=== PATIENT | female | born 1970 | race African-American/Black ===

== ENCOUNTER 2017-01-18 03:02 | Inpatient (IN) | payer OTHER ==
[2017-01-18] MEDS ORDERED: Magnesium Sulfate 2 GM/100 ML BAG ONE (03:31)
[2017-01-18] MEDS ORDERED: Albuterol Sulfate 2.5 mg/0.5 ml Neb ONE (03:33)
[2017-01-18] MEDS ORDERED: Albuterol Sulfate 2.5 mg/3 ml Neb ONE (03:33)
[2017-01-18] MEDS ORDERED: cefTRIAXone\\ROCEPHIN 1 GM VIAL ONE (03:48)
[2017-01-18] MEDS ORDERED: Sodium Chloride 0.9% 100 ML ONE (03:48)
[2017-01-18 03:57] LABS: Band 2 % (5-11); Hematocrit 41.6 % (36.0-47.0); Mean Platelet Volume 7.2 fL (7.4-10.4); Neutrophil 38 % (42-75); Red Blood Cell (RBC) Count 4.37 mill/uL (4.20-5.40); White Blood Cell (WBC) Count 8.4 thou/uL (4.8-10.8)
[2017-01-18 03:58] LABS: ALT (SGPT) 11 U/L (8-55); AST (SGOT) 12 U/L (5-34); Alkaline Phosphatase 65 U/L (40-150); Anion Gap 9 mmol/L (10-20); BUN (Urea Nitrogen) 7 mg/dL (7.0-18.7); Bilirubin, Total 0.3 mg/dL (0.2-1.2); CK (CPK) 41 U/L (29-168); Calc. Creatinine Clearance 0 mL/min (70-130); Calcium 9.1 mg/dL (7.8-10.44); Carbon Dioxide 22 mmol/L (22-29); Chloride 112 mmol/L (98-107); Estimated GFR-MDRD 62; Globulin 2.3 g/dL (2.4-3.5); Lipase 10 U/L (8-78); Protein, Total 5.7 g/dL (6.0-8.3)
[2017-01-18 04:00] LABS: Troponin I Less than 0.010 ng/mL (< 0.028)
[2017-01-18 04:01] LABS: Lactic Acid - Sepsis 2.1 mmol/L (0.5-2.2)
[2017-01-18 05:29] LABS: Bilirubin Negative (Negative); Blood, Urine Negative (Negative); Glucose, Urine (Dipstick) Negative (Negative); Ketone, Urine Negative (Negative); Nitrite Negative (Negative); Protein, Urine (Dipstick) Negative (Neg-Trace); Urobilinogen 0.2 mg/dL (0.2-1.0)
[2017-01-18] MEDS ORDERED: Ondansetron HCl/PF 4 MG/2 ML Vial IVP PRN (05:40)
[2017-01-18] MEDS ORDERED: Ondansetron ODT 4 MG TAB SL PRN (05:40)
[2017-01-18] MEDS ORDERED: Albuterol Sulfate 2.5 mg/3 ml Neb NEB PRN (05:44)
[2017-01-18 05:53] VITALS: BMI 29.1
[2017-01-18] MEDS: methylPREDNISolone Sod Succ/PF 125 MG/2 ML VIAL IVP SCH ×2 (06:42→12:29)
[2017-01-18] MEDS: D5 1/2 NS w/20 mEq KCL 1,000 ML IV SCH ×2 (06:43→12:31)
[2017-01-18 06:59] LABS: Troponin I Less than 0.010 ng/mL (< 0.028)
--- NOTE | 2017-01-18 07:54 | RAD ---
PORTABLE AP CHEST: Date: 01/18/17 HISTORY: Asthma exacerbation. Fever, chills, and back pain. Dyspnea. COMPARISON: 08/03/16. FINDINGS: Cardiac silhouette and pulmonary vasculature are within normal limits. Lungs remain clear. There has been no interval change from the prior exam. IMPRESSION: No acute cardiopulmonary process. POS: [facility]
[2017-01-18] MEDS ORDERED: FLU VACC QS2017-18 36 mo. & older 0.5 ML SYRINGE IM ONE (09:00)
[2017-01-18 09:48] LABS: Troponin I Less than 0.010 ng/mL (< 0.028)
[2017-01-18] MEDS: Famotidine 20 MG TAB PO SCH ×2 (10:18→20:06)
[2017-01-18] MEDS: Azithromycin 250 MG TAB PO SCH (10:18)
[2017-01-18] MEDS: Enoxaparin Sodium 40 MG/0.4 ML SYRINGE SC SCH (10:19)
[2017-01-18 13:08] LABS: Amphetamine Not Detected (NotDetected); Methadone Not Detected (NotDetected); Methamphetamine Not Detected (NotDetected)
--- NOTE | 2017-01-18 13:33 | CON ---
DATE OF CONSULTATION: 01/18/2017 HISTORY OF PRESENT ILLNESS: Ms. Sotomayor is a 47-year-old female with a history of noncompliance with followup. She still smokes. She has COPD. She has a long history of street drug use. She presents with 3 days of nausea, vomiting and then shortness of breath that developed during this period. She subsequently has been admitted for further care. PAST MEDICAL HISTORY: 1. Remarkable for admissions for COPD and asthma in the past. 2. History of hypertension. 3. History of schizoaffective disorder. 4. History of lipid disorder. 5. History of a and hysterectomy. MEDICATIONS: Last admission, she was supposed to be on DuoNeb, Symbicort, Neurontin and lisinopril. FAMILY HISTORY: Negative for lung disease at an early age. PHYSICAL EXAMINATION: GENERAL: She is in no distress. She is afebrile. Heart rate in the 80s, respiratory rate is 18, o ximetry is 100% on 2 liters and blood pressure 116/59. HEENT: Pupils are equal. Sclerae are anicteric. NECK: Supple. LUNGS: Remarkable for coarse diffuse wheezes. HEART: Regular rhythm. S1 and S2 are normal. ABDOMEN: Soft and nontender. EXTREMITIES: Without asymmetry or edema. IMAGING DATA: Chest radiograph shows no infiltrates. LABORATORY DATA: Lab has been reviewed. She has a white count of 8.4, hemoglobin 13.8 and platelet s 233,000. Electrolytes were essentially normal. IMPRESSION: Chronic obstructive pulmonary disease/asthma exacerbation, probably triggered by a dilip l gastroenteritis. PLAN: Steroids, nebulizer treatments and empiric p.o. antibiotics. DVT prophylaxis, Pepcid, serial exams. A drug screen was ordered just to see if she is still using cocaine and other street drugs. She does admit she is continuing to smoke.
[2017-01-18] MEDS: Mometasone/Formoterol 120 PUFF INHALER INH SCH (18:28)
[2017-01-18] MEDS: Gabapentin 300 MG CAP PO SCH (20:06)
[2017-01-19] MEDS: Guaifenesin DM 100-10/5 ML UDCUP PO PRN ×2 (00:35→21:48)
--- NOTE | 2017-01-19 06:10 | HP ---
DATE OF ADMISSION: 01/18/2017 REASON FOR ADMISSION AND CHIEF COMPLAINT: Shortness of breath. HISTORY OF PRESENT ILLNESS: Ms. Padmaja Sotomayor is a 47-year-old -[place] female with past med ical history of COPD, asthma, who came with shortness of breath. The patient states she has run out of nebulizer medicine and also machine not working since last one week, started using inhaler, but she ran out of the inhaler as well and became very sick in the last 4 days. Shortness of breath got worse to the point she could not breathe and started wheezing quite a bit. The patient has not com e for followup and she left AMA on the last admission. The patient came to the hospital where she w as evaluated and found to be in acute on chronic respiratory failure due to a chronic obstructive pu lmonary disease, asthma exacerbation. The patient was given Solu-Medrol IVP bolus 125 mg as well as put on BiPAP, given DuoNeb treatments as well, and given Rocephin, levofloxacin, and magnesium sulf ate as well, received IV fluid bolus 1 liter. The patient was put on BiPAP and admitted to [facility] the neb treatments and Solu-Medrol. The patient improved and she was taken off BiPAP. The patien t was already seen by waiter/waitress bar, Dr. Treviño, and was transferred to the medical floor. PAST MEDICAL HISTORY: 1. Hypertension. 2. Chronic obstructive pulmonary disease versus bronchial asthma. 3. History of respiratory failure. 4. Schizoaffective disorder. 5. Polysubstance abuse. 6. Hyperlipidemia. 7. Noncompliant with medications and followups. PAST SURGICAL HISTORY: 1. Status post . 2. Status post hysterectomy. CURRENT MEDICATIONS: The patient is supposed to be taking DuoNebs q.i.d., Symbicort inhaler 160/4.5 two puffs b.i.d., Neurontin 300 mg t.i.d., lisinopril 10 mg daily. ALLERGIES: No known drug allergies. FAMILY HISTORY: Nothing of interest. SOCIAL HISTORY: The patient lives with the family. Smokes 1 pack a day and uses cocaine. REVIEW OF SYSTEMS: Cardiovascular: Has shortness of breath, no chest pain. Respiratory: Has coug h. No fever. Gastrointestinal: Has some nausea and vomiting as well, vomited a few times. Centra l Nervous System: No headache, no dizziness. PHYSICAL EXAMINATION: GENERAL: The patient is alert, awake, oriented x3. VITAL SIGNS: Temperature 98, pulse 89, respirations 20, blood pressure 100/60. HEENT: Head is normocephalic, atraumatic. Pupils equal and reactive to light. Nasopharynx is pale and dry. Hard and soft palate, no lesions. SKIN: Skin turgor decreased. NECK: Supple. No JVD. LUNGS: Breath sounds diminished bilaterally and diffuse wheezing present bilaterally. HEART: S1, S2 regular. ABDOMEN: Soft, no tenderness. Normal bowel sounds. CENTRAL NERVOUS SYSTEM: No focal deficits. LABORATORY AND X-RAY FINDINGS: CBC shows a WBC of 8.4, hemoglobin 13.8, hematocrit 41, platelets 23 3. Metabolic panel: Sodium 139, potassium 3.7, chloride 112, CO2 of 22, BUN 7, creatinine 1.1, glu cose 104. CK-MB 0.2. Troponin less than 0.010. Urinalysis is negative. Urine drug screen positiv e for cocaine, cannabinoids, and phencyclidine. Chest x-ray negative for infiltrates. EKG shows no rmal sinus rhythm, no acute ST-T wave changes seen. ASSESSMENT: 1. Chronic obstructive pulmonary disease versus bronchial asthma, acute exacerbation. 2. Acute on chronic respiratory failure secondary to chronic obstructive pulmonary disease versus b ronchial asthma, acute exacerbation. 3. Noncompliant. 4. Polysubstance abuse. 5. Hypertension. 6. Schizoaffective disorder. PLAN: 1. Vital signs q. 4 hours. 2. Activity: As tolerated. 3. Allergies: No known drug allergies. 4. Hep-lock. 5. Solu-Medrol 20 mg IVP q. 6 hours, DuoNeb q. 4 hours. 6. Continue home medication. 7. Regular diet.
[2017-01-19] MEDS: Mometasone/Formoterol 120 PUFF INHALER INH SCH ×2 (07:37→19:08)
[2017-01-19] MEDS: Famotidine 20 MG TAB PO SCH ×2 (08:32→21:47)
[2017-01-19] MEDS: Gabapentin 300 MG CAP PO SCH ×2 (08:32→21:47)
[2017-01-19] MEDS: guaiFENesin ER 600 MG TAB PO SCH ×2 (08:32→21:47)
[2017-01-19] MEDS: Enoxaparin Sodium 40 MG/0.4 ML SYRINGE SC SCH (08:33)
[2017-01-19] MEDS: Lisinopril 20 MG TAB PO SCH (08:33)
[2017-01-19] MEDS: Azithromycin 250 MG TAB PO SCH (08:36)
--- NOTE | 2017-01-19 15:26 | PRG ---
DATE OF SERVICE: 01/19/2017 SUBJECTIVE: Ms. Padmaja Sotomayor apparently walked down to the cafeteria to eat today. OBJECTIVE: VITAL SIGNS: She is afebrile. Heart rate is 100, respiratory rate is in the teens, oximetry is 99% on 2 liters and blood pressure is 119/67. LABORATORY DATA: Her drug screen was positive for PCP, cocaine and marijuana. IMPRESSION AND PLAN: 1. Asthma, chronic obstructive pulmonary disease exacerbation. 2. History of medical noncompliance. 3. Ongoing multiple street drug use. It is probably reasonable to switch her to p.o. steroids and consider discharge in the near future. We will sign off.
[2017-01-19] MEDS: predniSONE 20 MG TAB PO SCH (21:48)
[2017-01-20] MEDS: Mometasone/Formoterol 120 PUFF INHALER INH SCH (07:05)
[2017-01-20 08:23] VITALS: TEMP 97.8
[2017-01-20] MEDS: Enoxaparin Sodium 40 MG/0.4 ML SYRINGE SC SCH (08:23)
[2017-01-20] MEDS: predniSONE 20 MG TAB PO SCH (08:24)
[2017-01-20] MEDS: Lisinopril 20 MG TAB PO SCH (08:24)
[2017-01-20] MEDS: guaiFENesin ER 600 MG TAB PO SCH (08:24)
[2017-01-20] MEDS: Azithromycin 250 MG TAB PO SCH (08:25)
[2017-01-20] MEDS: Gabapentin 300 MG CAP PO SCH (08:25)
[2017-01-20] MEDS: Famotidine 20 MG TAB PO SCH (08:25)
[2017-01-20 08:26] VITALS: BP 113/65
== END 2017-01-20 19:04 | disposition home or self-care (01) | DRG 190 ==
LOC: ERS 03:02 → IMCU/EMU 03:36 → T4-B 13:13
PROVIDERS: ADMIT Internal Medicine; ATTEND Internal Medicine
PROC: 5A09357 Assistance with Respiratory Ventilation, Less than 24 Consecutive Hours, Continuous Positive Airway Pressure (ICD-10-PCS; principal; 2017-01-18)
DX: J44.1 Chronic obstructive pulmonary disease with (acute) exacerbation (principal); J96.20 Acute and chronic respiratory failure, unspecified whether with hypoxia or hypercapnia; J45.901 Unspecified asthma with (acute) exacerbation; I10 Essential (primary) hypertension; F25.9 Schizoaffective disorder, unspecified; Z91.19 Patient's noncompliance with other medical treatment and regimen; F19.10 Other psychoactive substance abuse, uncomplicated; E78.5 Hyperlipidemia, unspecified; F17.210 Nicotine dependence, cigarettes, uncomplicated
CPT/HCPCS: 36415; 71010; 80053; 80306; 81003; 82550; 82553; 83605; 83690; 83880; 84484; 85025; 87040; 87086; 93005; 94640; 94644; 94660; 94664; 96365; 96367; A4216; J0696; J1650; J1956; J2920; J3475; J7050; J7506; J7611; J7620

== ENCOUNTER 2017-04-10 08:17 | Inpatient (IN) | payer OTHER ==
[2017-04-10 08:32] LABS: #Basophils 0.1 thou/uL (0.0-0.2); #Eosinphils 1.3 thou/uL (0.0-0.7); #Lymphocytes 4.3 thou/uL (1.20-3.40); #Monocytes 1.1 thou/uL (0.11-0.59); #Neutrophils 5.4 thou/uL (1.40-6.50); %Basophils 0.8 % (0.0-1.0); %Eosinophils 10.3 % (0.0-10.0); %Lymphocytes 35.7 % (21.0-51.0); %Monocytes 8.8 % (0.0-10.0); %Neutrophils 44.4 % (42.0-75.0); Hemoglobin 14.7 g/dL (12.0-16.0); Mean Corpuscular HGB CONC 32.1 g/dL (32.0-36.0); Mean Corpuscular Hemoglobin 30.8 pg (27.0-31.0); Mean Corpuscular Volume 95.9 fl (81.0-99.0); Mean Platelet Volume 7.5 fL (7.4-10.4); Platelet Count 317 thou/uL (130-400); RBC Distribution Width 12.6 % (11.5-14.5); Red Blood Cell (RBC) Count 4.78 mill/uL (4.20-5.40); White Blood Cell (WBC) Count 12.1 thou/uL (4.8-10.8)
[2017-04-10 08:40] LABS: Bilirubin Negative (Negative); Blood, Urine Moderate (Negative); Clarity CLEAR (Clear); Glucose, Urine (Dipstick) Negative (Negative); Leukocyte Negative (Negative); Nitrite Negative (Negative); Protein, Urine (Dipstick) 30 mg/dL (Neg-Trace); Specific Gravity, Urine 1.022 (1.002-1.036); Urobilinogen 0.2 mg/dL (0.2-1.0)
[2017-04-10 08:42] LABS: Bacteria/HPF None Seen HPF (None Seen); Pathc Cast-AUWi Flag 0.81 (0-2.49); Squamous Epithelial 0-3 HPF (0-3); WBC/HPF 0-3 HPF (0-3)
[2017-04-10] MEDS ORDERED: methylPREDNISolone Sod Succ/PF 125 MG/2 ML VIAL ONE (08:43)
[2017-04-10] MEDS ORDERED: Water For Inject, Bacteriostat 30 ML ONE (08:43)
[2017-04-10 08:52] LABS: ALT (SGPT) 14 U/L (8-55); AST (SGOT) 15 U/L (5-34); Albumin 4.1 g/dL (3.5-5.0); Alkaline Phosphatase 92 U/L (40-150); Anion Gap 14 mmol/L (10-20); BUN (Urea Nitrogen) 6 mg/dL (7.0-18.7); Bilirubin, Total 0.2 mg/dL (0.2-1.2); Calc. Creatinine Clearance 0 mL/min (70-130); Calcium 10.7 mg/dL (7.8-10.44); Carbon Dioxide 24 mmol/L (22-29); Chloride 108 mmol/L (98-107); Estimated GFR-MDRD 61; Globulin 3.2 g/dL (2.4-3.5); Glucose 96 mg/dL (70-105); Potassium 3.6 mmol/L (3.5-5.1); Protein, Total 7.3 g/dL (6.0-8.3); Sodium 142 mmol/L (136-145)
[2017-04-10 08:54] LABS: Hyaline Casts/LPF 0-3 HYALINE CAST LPF (0-3 Hyaline)
[2017-04-10 08:57] LABS: CKMB 0.5 ng/mL (0-6.6); Troponin I Less than 0.010 ng/mL (< 0.028)
[2017-04-10 09:07] LABS: Amphetamine Not Detected (NotDetected); Barbiturates Screen Not Detected (NotDetected); Benzodiazepine Screen Not Detected (NotDetected); Cocaine Metabolite Screen Detected (NotDetected); Medtox Control Line Valid? VALID (VALID); Medtox Reader # READER 1; Methadone Not Detected (NotDetected); Methamphetamine Not Detected (NotDetected); Opiate Screen Not Detected (NotDetected); Oxycodone Screen Not Detected (NotDetected); Phencyclidine (PCP) Detected (NotDetected); THC/Cannabinoid Screen Detected (NotDetected); Tricyclic Screen Not Detected (NotDetected)
[2017-04-10] MEDS ORDERED: Lorazepam 2 MG/ML VIAL ONE ×2 (09:10→18:17)
[2017-04-10 09:20] LABS: Base Excess (BEa) -0.5 mEq/L (0 (+/-) 2.5); CO2 Tension 34.3 mmHg (35.0-45.0); Calcium, Ionized 1.3 mmol/L (1.12-1.30); Hematocrit-ABG 42.6 % (36.0-47.0); Hemoglobin (Hb) 13.9 g/dL (12.0-16.0); O2 Tension (PaO2) 261.2 mmHg (80.0-100.0); pH, Arterial 7.44 (7.35-7.45)
[2017-04-10 09:21] LABS: ALV-art Gradient 408.925 (0-20); Analyzer IN Cardio ER; Puncture Site RRA
--- NOTE | 2017-04-10 09:40 | RAD ---
FRONTAL VIEW CHEST: INDICATIONS: Emergency exam for shortness of breath. COMPARISON: 01/18/2017 FINDINGS: The patient is intubated with an endotracheal tube at the level of the thoracic inlet. There is no l obar consolidation, effusion, or discrete pneumothorax. The cardiac silhouette is accentuated by the portable technique. IMPRESSION: 1. Endotracheal tube with the tip at the thoracic inlet level. 2. No lobar consolidation. POS: [facility]
[2017-04-10] MEDS ORDERED: Midazolam HCl 5 mg/ml Vial ONE ×3 (09:46→12:09)
--- NOTE | 2017-04-10 10:13 | CT ---
CT HEAD NONCONTRAST: INDICATIONS: Altered mental status with respiratory distress. COMPARISON: 08/03/2016 FINDINGS: The ventricular system is normal in size. The septum pellucidum and third ventricle are midline. Th ere is no intracranial hemorrhage, mass effect, or midline shift. Scattered paranasal sinuses mucosa l thickening is present. IMPRESSION: No acute intracranial abnormalities visualized. POS: [facility]
[2017-04-10] MEDS ORDERED: Propofol 1,000 MG/100 ML VIAL IV ONE (15:13)
[2017-04-10 15:21] VITALS: BMI 29.0
[2017-04-10] MEDS: Dextrose 5 %-0.45 % NaCl 1,000 ML IV SCH (17:24)
[2017-04-10] MEDS ORDERED: Lorazepam 2 MG/ML VIAL SLOW IVP PRN (18:23)
[2017-04-10] MEDS ORDERED: Propofol 1,000 MG/100 ML VIAL IV PRN (18:23)
[2017-04-10] MEDS ORDERED: Morphine 2 MG/ML SYRINGE SLOW IVP PRN (18:23)
[2017-04-10] MEDS ORDERED: DISCONTINUE PREVIOUS NARCOTIC PAIN MEDICATIONS AND BENZODIAZEPINES FS SCH (18:23)
[2017-04-10] MEDS ORDERED: fentaNYL Citrate/PF 2,000 MCG in Sodium Chloride 0.9% 60 ML IV SCH (18:30)
[2017-04-10] MEDS ORDERED: Mometasone/Formoterol 120 PUFF INHALER INH SCH (18:30)
[2017-04-10] MEDS ORDERED: Lacri-Lube Opth Oint 3.5 GM TUBE EA EYE PRN (19:04)
[2017-04-10] MEDS ORDERED: Labetalol HCl 100 MG/20 ML VIAL SLOW IVP PRN (19:08)
[2017-04-10] MEDS ORDERED: FLU VACC QS2017-18 36 mo. & older 0.5 ML SYRINGE IM ONE (21:00)
--- NOTE | 2017-04-11 00:09 | CON ---
DATE OF CONSULTATION: 04/10/2017 SERVICE: Pulmonary Medicine. HISTORY OF PRESENT ILLNESS: The patient is a 47-year-old -Citizen Of [place] female with past medical h istory significant for polysubstance drug abuse. Apparently, she was in her usual state of health wh en she started having acute onset of difficulty breathing. She came into a fire station acutely dysp neic. She was subsequently brought to the emergency department and intubated. Apparently, it was a traumatic intubation. Some injury happened to the lip, tongue, and possibly the airway. Either way, the airway was established. She cannot provide me with any additional elements of the history. It is not clear when she was last in her usual state of health to me. PAST MEDICAL HISTORY: 1. Hypertension. 2. Chronic obstructive pulmonary disease. 3. Respiratory failure. 4. Schizoaffective disorder. 5. Polysubstance drug abuse. 6. Dyslipidemia. 7. Noncompliance with medications. PAST SURGICAL HISTORY: 1. section. 2. Hysterectomy. ALLERGIES: No known drug allergies. MEDICATIONS: List of her inpatient medications was reviewed. Multiple updates were made. FAMILY HISTORY: Noncontributory. SOCIAL HISTORY: The patient uses multiple different illicit substances. She smokes a pack a day and uses cocaine and apparently, PCP. She lives with some family members. REVIEW OF SYSTEMS: This cannot be obtained as the patient is currently intubated and sedated. PHYSICAL EXAMINATION: VITAL SIGNS: Afebrile. Pulse 73, blood pressure 161/101, respirations 22, saturation 98% on 21% FIO 2 and a PEEP of 5. GENERAL: The patient is intubated and sedated. HEENT: Normocephalic. There is trauma to the lip and tongue. Sclerae are white, conjunctivae are p ink. Oral and nasal mucosa is moist without lesions. She does not have a cuff leak on the endotrach eal tube. LUNGS: Excellent air entry. There is no prolonged expiratory phase. I do not appreciate any wheezi ng or rhonchi. There is no prolonged expiratory phase on the ventilator waveform either. HEART: Normal rate, regular. ABDOMEN: Soft, nontender, nondistended, bowel sounds positive. MUSCULOSKELETAL: No cyanosis or clubbing. There is trace pitting in the bilateral lower extremities . NEUROLOGIC: Grossly nonfocal. LABORATORY DATA: WBC 12.1, hemoglobin 14.7, platelets 317,000. INR is 0.9. PH 7.44, pCO2 of 34, pO 2 of 261 on 100% FIO2. Creatinine 1.15, which is slightly above baseline. Basic metabolic profile a nd liver function studies are unremarkable. Cardiac enzymes are negative x3. Lactate 2.1 and down t rending. Urinalysis is unremarkable. Drug screen is positive for PCP, cocaine, and cannabinoids. I nfluenza screen is negative. Urine culture and blood cultures were all negative to date. IMAGIN. CT of the brain demonstrates no acute intracranial abnormality. 2. Chest x-ray demonstrates endotracheal tube is in good position. There is no obvious acute inflam matory process that is occurring here. ASSESSMENT: 1. Acute hypoxic respiratory failure, resolved. 2. Hypertensive emergency, resolved. 3. Metabolic encephalopathy. 4. Polysubstance drug abuse. PLAN: We will provide the patient with little sedation overnight. I am going to give her some stero ids because there is no cuff leak. In the morning, if there is a cuff leak, she can most likely be c onsidered for extubation. Ventilator adjustments have already been made to minimize support that we are giving her. She truthfully requires very little oxygen. Precedex will be provided if she become s a little bit excitable. We will also provide her with p.r.n. blood pressure medications. Supporti ve care will be continued. CRITICAL CARE TIME: 30 minutes.
--- NOTE | 2017-04-11 00:21 | HP ---
DATE OF ADMISSION: 04/10/2017 CHIEF COMPLAINT: Shortness of breath. HISTORY OF PRESENT ILLNESS: Ms. Sotomayor is a 47-year-old -[place] female with past medical his tory of COPD versus asthma, recent respiratory failure and polysubstance abuse, has been noncompliant with medications, was brought in with respiratory distress. Patient walked up to EMS station [facility] saying that she could not breathe. EMS gave her four DuoNeb treatments, and Solu-Medrol 125 bolus and nitro, put her on CPAP and brought her to the hospital. Patient was found to be in acute respira tory failure. In the ER, the patient was intubated and put on ventilator. Patient was also found to have positive for polysubstance including phencyclidine and cannabinoids and cocaine like before. P shaylee has been noncompliant with medications. Since last discharge, patient was not seen in the off ice, so it is not clear whether she is taking her medications. No history could be obtained because the patient is intubated and sedated. PAST MEDICAL HISTORY: 1. Schizoaffective disorder. 2. Hypertension. 3. Chronic obstructive pulmonary disease. 4. Polysubstance abuse. 5. Noncompliant with medication. 6. Hyperlipidemia. 7. History of respiratory failure. PAST SURGICAL HISTORY: 1. Status post . 2. Status post hysterectomy. CURRENT MEDICATIONS: Patient is supposed to be on DuoNebs q.i.d., Symbicort inhaler 160/4.5 two puff s b.i.d., Neurontin 300 mg t.i.d., lisinopril 10 mg daily. ALLERGIES: No known drug allergies. FAMILY HISTORY: Nothing of interest. SOCIAL HISTORY: Patient lives with family. There is a history of drug abuse including cocaine, teo abinoids, and phencyclidine. Also, smokes one pack a day. REVIEW OF SYSTEMS: Unable to obtain because the patient is intubated and sedated. PHYSICAL EXAMINATION: GENERAL: Patient is on bedside, on ventilator. LUNGS: Rhonchi present bilaterally. HEART: S1, S2 regular. ABDOMEN: Soft, no distention, no tenderness. Normal bowel sounds. RECTAL: Deferred. CENTRAL NERVOUS SYSTEM: No focal deficit. LABORATORY AND X-RAY FINDINGS: CBC shows WBC of 12,000, hemoglobin of 14, hematocrit 45, platelets 3 17. Metabolic panel: Sodium 142, potassium 3.6, chloride 100, CO2 is 24, urea nitrogen 16, creatini ne 1, glucose 96. ABG showed pH 7.4, pCO2 of 34, pO2 of 261, saturation 99%. Urinalysis negative. Urine toxicology was positive for phencyclidine, cocaine, and cannabinoids. Chest x-ray negative. C T of the brain, no acute intracranial abnormalities noted. EKG shows normal sinus rhythm, no acute S T-T wave changes seen. ASSESSMENT: 1. Acute on chronic respiratory failure secondary to chronic obstructive pulmonary disease versus br onchial asthma exacerbation. 2. Metabolic encephalopathy. 3. Polysubstance abuse. 4. Schizoaffective disorder. 5. Noncompliant with medications. 6. Hypertension. PLAN: 1. Vital signs q.4 hours. 2. Activity: As tolerated. 3. IV fluids D5 half at 80 mL per hour. 4. Ventilator support. 5. DuoNebs 1 unit q.3 hours. 6. Solu-Medrol 40 mg IVP q.6 hours. 7. Levaquin 750 IV piggyback daily. 8. Lovenox 40 mg subcu daily. 9. Protonix 40 mg p.o. q.24 hours IV piggyback. 10. Pulmonary consult. Her condition is critical. Prognosis is guarded.
[2017-04-11] MEDS ORDERED: Furosemide 40 MG/4 ML VIAL ONE (08:17)
[2017-04-11] MEDS ORDERED: hydrALAZINE 20 MG/ML VIAL SLOW IVP SCH (08:45)
[2017-04-11] MEDS ORDERED: Furosemide 20 MG/2 ML VIAL SLOW IVP SCH (08:45)
[2017-04-11] MEDS ORDERED: Enoxaparin Sodium 40 MG/0.4 ML SYRINGE SC SCH (09:00)
[2017-04-11] MEDS: Dextrose 5 %-0.45 % NaCl 1,000 ML IV SCH ×2 (09:25→20:52)
[2017-04-11] MEDS ORDERED: Lisinopril 20 MG TAB PO SCH (20:00)
[2017-04-11] MEDS: guaiFENesin ER 600 MG TAB PO SCH (20:33)
--- NOTE | 2017-04-11 23:54 | CON ---
DATE OF CONSULTATION: 04/11/2017 SUBJECTIVE: Ms. Sotomayor is a 47-year-old female with obstructive lung disease and asthma who presented with shortness of breath. She has a long history of noncompliance. Apparently, she was intubated in the emergency room. She extubated herself this morning. She is not wheezing at this time, she was seen by my associate yesterday. Past medical history, family history, social history have all been reviewed. She slammed the door on the nurses last night, jammed door, and they had to access through the bathroom, but she denie s doing this. She is not wheezing at this time. PHYSICAL EXAMINATION: VITAL SIGNS: Stable. She is afebrile, blood pressure 107/69, heart rate 65, respiratory rate 16. IMPRESSION AND RECOMMENDATIONS: Asthma/chronic obstructive pulmonary disease with ongoing symptoms that are aggravated by her ongoing inhaled drug use as well as ongoing smoking. I explained to her that I do not think she will live t hrough 2018 if she continues on this path. She is stable to move out of the Critical Care Unit. We will sign off.
[2017-04-12] MEDS ORDERED: Sodium Chloride 0.9% 10 ML ONE ×2 (05:50)
[2017-04-12] MEDS ORDERED: Mometasone/Formoterol 120 PUFF INHALER INH SCH (06:30)
[2017-04-12] MEDS: guaiFENesin ER 600 MG TAB PO SCH (08:47)
[2017-04-12] MEDS ORDERED: Lisinopril 20 MG TAB PO SCH (09:00)
[2017-04-12 16:58] VITALS: BP 134/76; TEMP 97.8
--- NOTE | 2017-04-12 18:02 | PRG ---
DATE OF SERVICE: 04/12/2017 SUBJECTIVE: Padmaja Sotomayor states she is back to her baseline and she wants to go home. She is in no distress. She is afebrile. Blood pressure 134/79, heart rate 85, respiratory rate 20, oximetry is 9 7% on room air. She has written a prescription for DuoNeb. Also written a prescription of 20 mg pre dnisone tablets to take 2 for 4 days, 1 for 8 days, then half tablet for 8 days, hopefully she will f ill this. Again I emphasized the importance of staying away from PCP, cocaine, marijuana, and cigare ttes. I have explained to her that this is why she is in the hospital with increasing frequency and that she may not make it through the year if she continues on this path. I have explained to her steff t the tube was life support. She would have without that and we will sign off.
[2017-04-12] MEDS: Dextrose 5 %-0.45 % NaCl 1,000 ML IV SCH (18:08)
[2017-04-13] MEDS ORDERED: predniSONE 20 MG TAB PO SCH (09:00)
--- NOTE | 2017-04-14 06:58 | DIS ---
DATE OF ADMISSION: 04/10/2017 DATE OF DISCHARGE: 04/12/2017 ADMITTING DIAGNOSES: 1. Acute on chronic respiratory failure secondary to chronic obstructive pulmonary disease versus br onchial asthma exacerbation. 2. Metabolic encephalopathy, polysubstance abuse. 3. Noncompliant with medications. 4. Schizoaffective disorder. 5. Hypertension. FINAL DIAGNOSES: 1. Acute on chronic respiratory failure secondary to chronic obstructive pulmonary disease versus br onchial asthma exacerbation, improved. 2. Metabolic encephalopathy, improved. 3. Polysubstance abuse. 4. Schizoaffective disorder 5. Hypertension. BRIEF HOSPITAL COURSE: Ms. Sotomayor is a 47-year-old -[place] female admitted because of respir atory failure. Patient has had not been taking medications, did not come for refills and so she is o ut of medications and also she is abusing lot of substance including cocaine, phencyclidine, and teo abinoids and smokes 1 pack a day and not taking her medications. She ended up again in the respirato ry failure. The patient was admitted previously for the similar issues, similar problems. Though, jose shaylee was told not to abuse any substances and also take her medications, the patient continued to d o the same, so she was intubated and put on ventilator and admitted to CCU for respiratory failure. Following day, patient was feeling better, but before she could be extubated, she extubated herself. The patient continued neb treatments and Solu-Medrol. She was moved out of ICU and the following da y, patient was much better, she did not have anymore wheezing. In view of improvement, the patient w as discharged. At the time of discharge, she was stable. Vital signs were stable. Lungs clear. He art sounds regular. DISCHARGE MEDICATIONS: Include DuoNebs q.i.d., Mucinex 600 b.i.d. for 10 days, lisinopril 20 mg leandro y, prednisone in tapering doses, Symbicort 160/4.5 two puffs b.i.d. DISCHARGE INSTRUCTIONS: The patient is strongly advised to avoid any kind of substance abuse and als o to be compliant with her medications.
== END 2017-04-12 18:55 | disposition home or self-care (01) | DRG 208 ==
LOC: ERS 08:17 → ERHOLD 10:05 → CCU 15:04 → ONC 04-11 18:34
PROVIDERS: ADMIT Internal Medicine; ATTEND Internal Medicine
PROC: 5A1935Z Respiratory Ventilation, Less than 24 Consecutive Hours (ICD-10-PCS; principal; 2017-04-10)
PROC: 0BH17EZ Insertion of Endotracheal Airway into Trachea, Via Natural or Artificial Opening (ICD-10-PCS; 2017-04-10)
DX: J96.21 Acute and chronic respiratory failure with hypoxia (principal); G92 Toxic encephalopathy; J44.1 Chronic obstructive pulmonary disease with (acute) exacerbation; I16.1 Hypertensive emergency; F25.9 Schizoaffective disorder, unspecified; F14.10 Cocaine abuse, uncomplicated; F16.10 Hallucinogen abuse, uncomplicated; Z91.14 Patient's other noncompliance with medication regimen; I10 Essential (primary) hypertension; F17.210 Nicotine dependence, cigarettes, uncomplicated; E78.5 Hyperlipidemia, unspecified
CPT/HCPCS: 31500; 36415; 51702; 70450; 71045; 80053; 80306; 81003; 81015; 82553; 82805; 83605; 84484; 85025; 87040; 93005; 94003; 94640; 94760; 96361; 96365; 96366; 96374; 96375; 96376; A4216; J1940; J1956; J2060; J2250; J2704; J2920; J2930; J7050; J7620

== ENCOUNTER 2017-06-23 13:57 | Inpatient (IN) | payer OTHER ==
[2017-06-23] MEDS ORDERED: Albuterol Sulfate 2.5 mg/3 ml Neb ONE (14:29)
[2017-06-23 15:00] LABS: Hemoglobin 13.6 g/dL (12.0-16.0); Mean Corpuscular HGB CONC 32.5 g/dL (32.0-36.0); Mean Corpuscular Hemoglobin 30.7 pg (27.0-31.0); Mean Corpuscular Volume 94.4 fl (81.0-99.0); Mean Platelet Volume 7.1 fL (7.4-10.4); Platelet Count 277 thou/uL (130-400); RBC Distribution Width 13.9 % (11.5-14.5); Red Blood Cell (RBC) Count 4.44 mill/uL (4.20-5.40); White Blood Cell (WBC) Count 20.1 thou/uL (4.8-10.8)
[2017-06-23 15:03] LABS: Base Excess (BEa) -0.4 mEq/L (0 (+/-) 2.5); CO2 Tension 33.8 mmHg (35.0-45.0); O2 Tension (PaO2) 66.7 mmHg (80.0-100.0); pH, Arterial 7.45 (7.35-7.45)
[2017-06-23 15:04] LABS: Calcium, Ionized 1.5 mmol/L (1.12-1.30); Hemoglobin (Hb) 12.8 g/dL (12.0-16.0)
[2017-06-23 15:05] LABS: Analyzer IN Cardio ER; Puncture Site LRA
--- NOTE | 2017-06-23 15:05 | RAD ---
CHEST 1 VIEW: Date: 06/23/17 HISTORY: 47-year-old female with history of dyspnea and shortness of breath. COMPARISON: 04/10/17. FINDINGS: Heart size is normal. There is a small focus of questionable minimal increased density in the right l ower lobe, possibly a small focus of infiltrate. Conceivably, this could represent a pulmonary nodule , although it did not appear to be present on 04/10/17 and I doubt that it has developed in the inter colin. IMPRESSION: Small opacity overlying the right hemidiaphragm. I favor this to be small area of pneumonia, although a small nodule cannot be excluded. Correlate clinically and recommend short-term follow-up to includ e upright PA and lateral chest. POS: [facility]
[2017-06-23] MEDS ORDERED: Dexamethasone 4 mg/ml Vial ONE (15:06)
[2017-06-23] MEDS ORDERED: Magnesium Sulfate 2 GM/100 ML BAG ONE (15:06)
[2017-06-23 15:16] LABS: Band 9 % (5-11); Lymphocytes 13 % (21-51); MDiff Complete? YES; Monocytes 9 % (0-10); Neutrophil 67 % (42-75); PLT Morphology Comment Appears Adequate; RBC Morphology Normal; Reactive Lymphocytes 2 % (0-10)
[2017-06-23 15:18] LABS: ALT (SGPT) 13 U/L (8-55); AST (SGOT) 12 U/L (5-34); Albumin 3.8 g/dL (3.5-5.0); Alkaline Phosphatase 78 U/L (40-150); Anion Gap 15 mmol/L (10-20); BUN (Urea Nitrogen) 9 mg/dL (7.0-18.7); Bilirubin, Total 0.2 mg/dL (0.2-1.2); CK (CPK) 107 U/L (29-168); Calc. Creatinine Clearance 0 mL/min (70-130); Calcium 10.3 mg/dL (7.8-10.44); Carbon Dioxide 19 mmol/L (22-29); Chloride 107 mmol/L (98-107); Estimated GFR-MDRD 77; Globulin 2.7 g/dL (2.4-3.5); Glucose 89 mg/dL (70-105); Lipase Less than 4 U/L (8-78); Potassium 3.8 mmol/L (3.5-5.1); Protein, Total 6.5 g/dL (6.0-8.3); Sodium 137 mmol/L (136-145)
[2017-06-23 15:22] LABS: Troponin I Less than 0.010 ng/mL (< 0.028)
[2017-06-23 16:23] LABS: Bilirubin Negative (Negative); Blood, Urine Negative (Negative); Clarity CLEAR (Clear); Glucose, Urine (Dipstick) Negative (Negative); Leukocyte Negative (Negative); Nitrite Negative (Negative); Protein, Urine (Dipstick) Negative (Neg-Trace); Specific Gravity, Urine 1.006 (1.002-1.036); Urobilinogen 0.2 mg/dL (0.2-1.0); pH, Urine 6.5 (5.0-9.0)
[2017-06-23 21:36] VITALS: BMI 28.4
[2017-06-23] MEDS ORDERED: Ondansetron ODT 4 MG TAB SL PRN (21:53)
[2017-06-23] MEDS ORDERED: Sodium Chloride 0.9% 1,000 ML IV SCH (21:53)
[2017-06-23] MEDS ORDERED: Ondansetron HCl/PF 4 MG/2 ML Vial IVP PRN (21:53)
[2017-06-23] MEDS: Sodium Chloride 0.9% 1,000 ML IV SCH (23:45)
[2017-06-24] MEDS: Mometasone/Formoterol 120 PUFF INHALER INH SCH ×2 (06:38→18:27)
[2017-06-24] MEDS: Lisinopril 20 MG TAB PO SCH (08:14)
[2017-06-24] MEDS: Gabapentin 300 MG CAP PO SCH ×2 (08:14→20:52)
[2017-06-24] MEDS: Sodium Chloride 0.9% 1,000 ML IV SCH ×3 (08:18→23:07)
[2017-06-24] MEDS ORDERED: FLU VACC QS2017-18 36 mo. & older 0.5 ML SYRINGE IM ONE (09:00)
[2017-06-24] MEDS ORDERED: Guaifenesin DM 100-10/5 ML UDCUP PO PRN (14:45)
--- NOTE | 2017-06-24 16:20 | RAD ---
PA AND LATERAL OF THE CHEST: 06/24/17 INDICATION: History of asthma exacerbation. FINDINGS: No focal consolidation, pleural effusion, or pneumothorax is evident. Cardiomediastinal is within no rmal limits. No acute osseous abnormality is evident. IMPRESSION: No acute cardiopulmonary abnormality. POS: [facility]
[2017-06-24 18:51] LABS: Medtox Reader # READER 4; THC/Cannabinoid Screen Detected (NotDetected)
[2017-06-24 18:52] LABS: Amphetamine Not Detected (NotDetected); Barbiturates Screen Not Detected (NotDetected); Benzodiazepine Screen Not Detected (NotDetected); Cocaine Metabolite Screen Detected (NotDetected); Medtox Control Line Valid? VALID (VALID); Methadone Not Detected (NotDetected); Methamphetamine Not Detected (NotDetected); Opiate Screen Not Detected (NotDetected); Oxycodone Screen Not Detected (NotDetected); Phencyclidine (PCP) Detected (NotDetected); Tricyclic Screen Not Detected (NotDetected)
--- NOTE | 2017-06-25 00:20 | HP ---
DATE OF ADMISSION: 06/23/2017 CHIEF COMPLAINT: Shortness of breath and cough. HISTORY OF PRESENT ILLNESS: Ms. Sotomayor is a 47-year-old with past medical history of asthma with COPD, started having wheezing. She uses nebulizer treatments, used 3 times already, and also started on prednisone, but the symptoms were getting worse. The patient was initially seen in the office and then referred to the ER. In the ER, the patient was evaluated and found to be in acute on chronic respiratory failure due to chronic obstructive pulmonary disease versus asthma exacerbation. The patient was given Decadron, DuoNeb, IV fluids, and admitted for further evaluation and management. The patient was also found to have small area of pneumonia on the right side and was given one dose of Levaquin. PAST MEDICAL HISTORY: 1. Chronic obstructive pulmonary disease versus asthma. 2. Hypertension. 3. Hyperlipidemia. 4. Bipolar disorder. 5. History of drug abuse. 6. History of TIA. PAST SURGICAL HISTORY: Status post , status post hysterectomy. CURRENT MEDICATIONS: The patient is on DuoNeb q.i.d., Symbicort 160/4.5 two puffs b.i.d., Neurontin 300 mg b.i.d., lisinopril 10 mg daily, prednisone 50 mg daily. ALLERGIES: No known drug allergies. FAMILY HISTORY: Nothing of interest. SOCIAL HISTORY: The patient lives with her family. History of drug abuse. Smokes one pack a day, uses cocaine, cannabinoids and phencyclidine. REVIEW OF SYSTEMS: Cardiovascular: No chest pain. Has shortness of breath. Respiratory: Has cough, no fever. Gastrointestinal: No nausea, no abdominal pain. Genitourinary: No dysuria. Central nervous system: No headache, no dizziness. PHYSICAL EXAMINATION: GENERAL: The patient is alert, awake, oriented x3. VITAL SIGNS: Temperature 98, pulse 77, respiration 22, blood pressure 120/60. HEENT: Head is normocephalic, atraumatic. Pupils are equal, round and reactive to light. Nasopharynx is pink, moist. NECK: Supple. No JVD. LUNGS: Bilateral air entry +, wheezing present bilaterally. No rales. CARDIAC: S1, S2 regular. ABDOMEN: Soft, no tenderness, no distention. Normal bowel sounds present. RECTAL: Deferred. CENTRAL NERVOUS SYSTEM: No focal deficits. LABORATORY DATA AND X-RAY FINDINGS: CBC shows WBC 20,000, hemoglobin 13, hematocrit 41, platelets 277. Metabolic panel: Sodium 137, potassium 3.8, chloride 107, CO2 19, BUN 9, creatinine 0.9, glucose 89. ABG showed pH 7.45, pCO2 of 33, pO2 66, saturation 96%. Urinalysis negative. Chest x-ray reported as small opacity overlying the right hemidiaphragm, possible pneumonia. EKG shows normal sinus rhythm, no acute ST-T wave changes seen. ASSESSMENT: 1. Acute on chronic respiratory failure due to chronic obstructive pulmonary disease versus bronchial asthma exacerbation. 2. Pneumonia, right lower lobe. 3. Hypertension. 4. History of drug abuse. 5. Bipolar disorder. PLAN: 1. Vital signs q.4 hours. 2. Activity: As tolerated. 3. Allergies: No known drug allergies. 4. IV fluids with normal saline at 100 mL per hour. 5. Solu-Medrol 40 IVP q.6 hours, DuoNeb 1 unit q.6 hours. 6. Continue home medications with Levaquin 750 mg IV piggyback daily. We will repeat the chest x-ray. [facility]
[2017-06-25] MEDS ORDERED: Fluticasone Propionate Nasal Spray 16 gm Bottle NASAL SCH (00:45)
[2017-06-25] MEDS: Fluticasone Propionate Nasal Spray 16 gm Bottle NASAL PRN ×2 (01:10→09:39)
[2017-06-25] MEDS: Mometasone/Formoterol 120 PUFF INHALER INH SCH (07:02)
[2017-06-25] MEDS: Lisinopril 20 MG TAB PO SCH (09:37)
[2017-06-25] MEDS: Gabapentin 300 MG CAP PO SCH (09:37)
[2017-06-25 17:34] VITALS: BP 147/96; TEMP 97.9
[2017-06-26] MEDS ORDERED: predniSONE 50 MG TAB PO SCH (08:00)
--- NOTE | 2017-06-27 13:46 | DIS ---
DATE OF ADMISSION: 06/23/2017 DATE OF DISCHARGE: 06/25/2017 ADMITTING DIAGNOSES: 1. Acute on chronic respiratory failure due to bronchial asthma versus chronic obstructive pulmonary disease exacerbation. 2. Pneumonia, right lower lobe. 3. Hypertension. 4. History of drug abuse with bipolar disorder. FINAL DIAGNOSES: 1. Acute on chronic respiratory failure due to chronic obstructive pulmonary disease exacerbation, i mproved. 2. No evidence of pneumonia. 3. Hypertension. 4. History of polysubstance abuse with bipolar disorder. BRIEF SUMMARY OF HOSPITAL COURSE: Ms. Sotomayor is a 47-year-old female admitted [facility] of severe respiratory failure. The patient was in wheezing and hypoxia. She was given neb treatme nt with Solu-Medrol after which she markedly improved. She was still continued on steroids, nebulize r treatments and admitted for further evaluation. Initially, she was thought to have pneumonia. She was started on Levaquin, but repeat chest x-ray revealed no evidence of pneumonia. In the following 2 days, her shortness of breath markedly improved. Her chest wheezing resolved. Her cough is much improved. No fever. In view of improvement, she was discharged home. At the time of discharge, she was stable. Her vital signs were stable. Lungs clear. Heart sounds regular. Abdomen is soft and nontender. Bowel sounds present. DISCHARGE MEDICATIONS: Lisinopril 20 mg daily, gabapentin 600 b.i.d., Symbicort 160/4.5 two puffs b. i.d., DuoNeb q.i.d., prednisone 50 mg daily for 5 days. FOLLOWUP: The patient will come for followup in 2 weeks.
--- NOTE | 2017-08-05 14:57 | EKG ---
Test Reason : Blood Pressure : / mmHG Vent. Rate : 098 BPM Atrial Rate : 098 BPM P-R Int : 116 ms QRS Dur : 074 ms QT Int : 338 ms P-R-T Axes : 038 055 069 degrees QTc Int : 431 ms Normal sinus rhythm Normal ECG Confirmed by CARLOS MONIQUE, WILBERTO ([id number]), senior technical editor HANS ENCISO ([id number]) on 08/05/2017 2:57:16 PM Referred By: Confirmed By:WILBERTO GONZALEZ MD
== END 2017-06-25 17:51 | disposition home or self-care (01) | DRG 193 ==
LOC: ERS 13:57 → T4-B 18:51
PROVIDERS: ADMIT Internal Medicine; ATTEND Internal Medicine
DX: J18.9 Pneumonia, unspecified organism (principal); J96.21 Acute and chronic respiratory failure with hypoxia; J44.1 Chronic obstructive pulmonary disease with (acute) exacerbation; I10 Essential (primary) hypertension; E78.5 Hyperlipidemia, unspecified; F31.9 Bipolar disorder, unspecified; Z86.73 Personal history of transient ischemic attack (TIA), and cerebral infarction without residual deficits; F17.210 Nicotine dependence, cigarettes, uncomplicated; F14.10 Cocaine abuse, uncomplicated; F12.10 Cannabis abuse, uncomplicated
CPT/HCPCS: 36415; 71045; 71046; 80053; 80306; 81003; 82553; 82805; 83605; 83690; 83880; 84484; 85025; 87040; 87804; 93005; 94640; 94644; 96361; 96365; 96375; A4216; J1100; J1956; J2920; J3475; J7611; J7620

== ENCOUNTER 2017-12-11 07:08 | Inpatient (IN) | payer OTHER ==
[2017-12-11] MEDS ORDERED: methylPREDNISolone Sod Succ/PF 125 MG/2 ML VIAL ONE ×2 (07:40→13:12)
[2017-12-11] MEDS ORDERED: Magnesium Sulfate 2 GM/100 ML BAG ONE (07:40)
[2017-12-11] MEDS ORDERED: Ondansetron HCl/PF 4 MG/2 ML Vial ONE (07:40)
[2017-12-11 07:47] LABS: #Basophils 0.1 thou/uL (0.0-0.2); #Eosinphils 0.9 thou/uL (0.0-0.7); #Monocytes 1.1 thou/uL (0.11-0.59); #Neutrophils 5.8 thou/uL (1.40-6.50); %Basophils 0.9 % (0.0-1.0); %Eosinophils 7.8 % (0.0-10.0); %Lymphocytes 33.7 % (21.0-51.0); %Monocytes 8.9 % (0.0-10.0); %Neutrophils 48.8 % (42.0-75.0); Mean Corpuscular HGB CONC 34.1 g/dL (32.0-36.0); Mean Corpuscular Hemoglobin 31.5 pg (27.0-31.0); Mean Corpuscular Volume 92.4 fL (78.0-98.0); Mean Platelet Volume 7.6 fL (7.4-10.4); Platelet Count 276 thou/uL (130-400); RBC Distribution Width 12.8 % (11.5-14.5); Red Blood Cell (RBC) Count 4.75 mill/uL (4.20-5.40)
--- NOTE | 2017-12-11 08:01 | RAD ---
UPRIGHT PORTABLE CHEST 1 VIEW: HISTORY: A 47-year-old female with a history of difficulty breathing for 2 days. COMPARISON: 06/24/17. FINDINGS: Monitor leads overlie the chest. The lungs are clear. No pneumonia, edema, or pleural effusion. IMPRESSION: No acute intrathoracic disease. Stable from prior study. POS: [facility]
[2017-12-11 08:07] LABS: ALT (SGPT) 11 U/L (8-55); AST (SGOT) 13 U/L (5-34); Albumin 4.5 g/dL (3.5-5.0); Alkaline Phosphatase 94 U/L (40-150); Anion Gap 13 mmol/L (10-20); BUN (Urea Nitrogen) 9 mg/dL (7.0-18.7); Bilirubin, Total 0.7 mg/dL (0.2-1.2); Calc. Creatinine Clearance 0 mL/min (70-130); Calcium 10.6 mg/dL (7.8-10.44); Carbon Dioxide 19 mmol/L (22-29); Chloride 109 mmol/L (98-107); Estimated GFR-MDRD 68; Globulin 3.3 g/dL (2.4-3.5); Glucose 126 mg/dL (70-105); Potassium 3.3 mmol/L (3.5-5.1); Protein, Total 7.8 g/dL (6.0-8.3); Sodium 138 mmol/L (136-145)
[2017-12-11 08:28] LABS: CO2 Tension 28.7 mmHg (35.0-45.0); O2 Tension (PaO2) 70.6 mmHg (80.0-100.0); pH, Arterial 7.46 (7.35-7.45)
[2017-12-11 08:29] LABS: Actual Bicarbonate (HCO3a) 20.1 mEq/L (22-28); Base Excess (BEa) -2.2 mEq/L (-2.0 to +3.0); Carboxyhemoglobin (COHb) 4.2 gm% (0.0-3.0); Hemoglobin (Hb) 15.1 g/dL (12.0-16.0)
[2017-12-11 08:30] LABS: Analyzer IN Cardio ER; Calcium, Ionized 1.24 mmol/L (1.12-1.30); Potassium - ABG Lab 3.1 mmol/L (3.70-5.30); Puncture Site LR
[2017-12-11 08:31] LABS: ALV-art Gradient 71.775 (0-20)
[2017-12-11 15:02] VITALS: BMI 28.2
[2017-12-11] MEDS: Potassium Chloride 20 MEQ TAB PO SCH ×2 (16:21→18:53)
--- NOTE | 2017-12-11 17:46 | HP ---
REASON FOR ADMISSION 12/11/2017 CHIEF COMPLAINT: Shortness of breath, cough. HISTORY OF PRESENT ILLNESS: Ms. Sotomayor is a 47-year-old -[place]ish female with past medical his tory of bronchial asthma, who came because of worsening shortness of breath for the last 2 days. The patient states she has been taking nebulizer treatments, Symbicort inhaler, but her shortness of jordy ath was getting worse, a lot of wheezing and cough productive with white sputum. So feels like chest was tight. Because of the worsening of the symptoms, the patient decided to come to the hospital vi a EMS who found the patient with respiratory distress and chest wheezing and hypoxic. The patient to ok 4 times breathing treatments prior to EMS arrival. The EMS put her on BiPAP. In the ER, the jaison ent was still hypoxic and respiratory distress. The patient received a dose of Solu-Medrol bolus 125 , then given DuoNeb treatments as well. The patient states she slightly feels better, though she is still on BiPAP, being admitted for further evaluation and management. PAST MEDICAL HISTORY: 1. Bronchial asthma versus chronic obstructive pulmonary disease. 2. Hypertension. 3. Hyperlipidemia. 4. Bipolar disorder. 5. History of drug/polysubstance abuse. 6. History of TIA. PAST SURGICAL HISTORY: 1. Status post . 2. Status post hysterectomy. CURRENT MEDICATIONS: Patient is on DuoNeb q.i.d., Symbicort 160/4.5 two puffs b.i.d., Neurontin 300 mg daily, lisinopril 10 mg daily. ALLERGIES: No known drug allergies. FAMILY HISTORY: Nothing of interest. SOCIAL HISTORY: Patient lives with family. Smokes one pack a day. History of using polysubstance a buse including cocaine, cannabinoids and . REVIEW OF SYSTEMS: Cardiovascular: No chest pain or shortness of breath. Respiratory: Has cough, no fever. Gastrointestinal: No nausea, vomiting, abdominal pain. Genitourinary: No dysuria or hem aturia. Central Nervous System: No headache, no dizziness. PHYSICAL EXAMINATION: GENERAL: The patient is alert and awake, oriented x3. VITAL SIGNS: Temperature 98, pulse 74, respiration 20, blood pressure 135/80. HEENT: Head is normocephalic, atraumatic. Pupils equal and reactive to light. Nasopharynx is pale and dry. Hard and soft palate, no lesions seen. SKIN: Skin turgor decreased. NECK: Supple. No JVD. LUNGS: Breath sounds diminished bilaterally. Percussion not dull bilaterally. Expiratory wheeze pr esent bilaterally. CARDIAC: S1, S2 regular. ABDOMEN: Soft, no distention, no tenderness. Normal bowel sounds. RECTAL: Deferred. CENTRAL NERVOUS SYSTEMS: No focal deficits. LABORATORY DATA: CBC shows WBC 12, hemoglobin 15, hematocrit 49, platelets 276. Metabolic panel: S odium 138, potassium 3.3, chloride 106, CO2 19, BUN 9, creatinine 1.04, glucose 95. Lactic acid, ___ __ lactic acid, BNP. Chest x-ray, no acute intrathoracic disease. EKG shows normal sinus rhythm, no acute ST-T wave changes. ASSESSMENT: 1. Bronchial asthma versus chronic obstructive pulmonary disease acute exacerbation. 2. Acute on chronic respiratory failure, on BiPAP. 3. Hypertension. 4. Bipolar disorder. 5. History of polysubstance abuse. PLAN: 1. Vital signs q.4 hours. 2. Activity: As tolerated. 3. Allergies: No known drug allergies. 4. Hep-Lock. 5. DuoNebs 1 unit q.4h. 6. Solu-Medrol 20 IVP q.6h. 7. Continue her home medications and Lovenox 40 subcu daily. 8. Urine drug screen. 9. Diet: Cardiac. Oxygen by nasal cannula 3 liters.
[2017-12-11 17:53] LABS: Medtox Reader # READER 4
[2017-12-11 17:54] LABS: Amphetamine Not Detected (NotDetected); Barbiturates Screen Not Detected (NotDetected); Benzodiazepine Screen Not Detected (NotDetected); Cocaine Metabolite Screen Detected (NotDetected); Medtox Control Line Valid? VALID (VALID); Methadone Not Detected (NotDetected); Methamphetamine Not Detected (NotDetected); Opiate Screen Not Detected (NotDetected); Oxycodone Screen Not Detected (NotDetected); Phencyclidine (PCP) Detected (NotDetected); THC/Cannabinoid Screen Detected (NotDetected); Tricyclic Screen Not Detected (NotDetected)
[2017-12-11] MEDS: Mometasone/Formoterol 120 PUFF INHALER INH SCH (18:20)
[2017-12-12 05:59] LABS: Anion Gap 13 mmol/L (10-20); BUN (Urea Nitrogen) 12 mg/dL (7.0-18.7); Calc. Creatinine Clearance 90 mL/min (70-130); Calcium 10.4 mg/dL (7.8-10.44); Carbon Dioxide 18 mmol/L (22-29); Chloride 109 mmol/L (98-107); Estimated GFR-MDRD 75; Glucose 189 mg/dL (70-105); Potassium 4.4 mmol/L (3.5-5.1); Sodium 136 mmol/L (136-145)
[2017-12-12] MEDS: Mometasone/Formoterol 120 PUFF INHALER INH SCH (08:16)
[2017-12-12] MEDS: Lisinopril 20 MG TAB PO SCH (09:05)
[2017-12-12] MEDS: Enoxaparin Sodium 40 MG/0.4 ML SYRINGE SC SCH (09:05)
[2017-12-12] MEDS: Gabapentin 300 MG CAP PO SCH ×2 (09:07→20:34)
[2017-12-12] MEDS ORDERED: Albuterol Sulfate 2.5 mg/3 ml Neb NEB PRN (11:55)
[2017-12-12] MEDS ORDERED: predniSONE 20 MG TAB PO SCH (12:00)
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
[2017-12-13] MEDS ORDERED: predniSONE 20 MG TAB PO SCH (08:00)
[2017-12-13] MEDS: Gabapentin 300 MG CAP PO SCH (08:07)
[2017-12-13] MEDS: Enoxaparin Sodium 40 MG/0.4 ML SYRINGE SC SCH (08:07)
[2017-12-13] MEDS: Lisinopril 20 MG TAB PO SCH (08:07)
[2017-12-13 13:28] VITALS: BP 133/64; TEMP 97.7
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
--- NOTE | 2017-12-14 14:28 | DIS ---
ADMITTING DIAGNOSES: 1. Bronchial asthma versus chronic obstructive pulmonary disease exacerbation. 2. Acute on chronic respiratory failure on BiPAP. 3. Hypertension. 4. Bipolar disorder. 5. History of polysubstance abuse. FINAL DIAGNOSES: 1. Bronchial asthma, acute exacerbation, improved. 2. Acute on chronic respiratory failure, improved. 3. Polysubstance abuse. 4. Hypertension. 5. Bipolar disorder. BRIEF SUMMARY OF HOSPITAL COURSE: Ms. Sotomayor is a 47-year-old female [facility] of shortness of breath. The patient was in acute respiratory failure secondary to bronchial asthma exacerbation. The patient was started on nebulizer treatments, and Solu-Medrol and she was on BiPAP , admitted to [facility]. The patient was seen by Pulmonary, seen by Dr. Castellon who felt the patient had respiratory failure secondary to noncompliance with medications. He says to change the medication to p.o. The patient was taken off BiPAP. She was on nasal cannula, so she was transferred to the [facility] floor. She was continued on Solu-Medrol for another day, but her lungs sounds sounded clear, maria guadalupe ntually it was decreased in dose and changed to prednisone. In view of improvement, the patient is b eing discharged. At the time of discharge, she was stable. Her vital signs stable. Lungs clear. H eart sound are regular. Abdomen; bowel sounds present. DISCHARGE MEDICATIONS: Lisinopril 20 mg daily, gabapentin 600 b.i.d., Symbicort 160/4.5 two puffs b. i.d., DuoNebs q.i.d., prednisone in tapering doses. The patient was also positive for polysubstance including cocaine, cannabinoids and phencyclidine. T he patient was strongly advised against using any kind of drugs. FOLLOWUP: She will come for follow up in 2 weeks.
== END 2017-12-13 18:20 | disposition home or self-care (01) | DRG 189 ==
LOC: ERS 07:08 → ERHOLD 08:50 → ONC 09:30 → IMCU/EMU 14:16 → ONC 12-12 18:23
PROVIDERS: ADMIT Internal Medicine; ATTEND Internal Medicine
PROC: 5A09357 Assistance with Respiratory Ventilation, Less than 24 Consecutive Hours, Continuous Positive Airway Pressure (ICD-10-PCS; principal; 2017-12-11)
DX: J96.21 Acute and chronic respiratory failure with hypoxia (principal); J45.901 Unspecified asthma with (acute) exacerbation; F31.9 Bipolar disorder, unspecified; I10 Essential (primary) hypertension; E78.5 Hyperlipidemia, unspecified; F17.210 Nicotine dependence, cigarettes, uncomplicated; Z86.73 Personal history of transient ischemic attack (TIA), and cerebral infarction without residual deficits; Z91.14 Patient's other noncompliance with medication regimen
CPT/HCPCS: 36415; 71045; 80048; 80053; 80306; 82805; 85025; 90471; 90732; 93005; 94640; 94660; 96365; 96375; 96376; A4216; G0009; J1650; J2405; J2920; J2930; J3475; J7506; J7620

== ENCOUNTER 2018-03-07 15:19 | Emergency (ER) | payer OTHER ==
[2018-03-07] MEDS ORDERED: Sterile Water 10 ML ONE (16:03)
[2018-03-07] MEDS ORDERED: Magnesium 2 GM/50 ML BAG (IN WATER) ONE (16:03)
[2018-03-07] MEDS ORDERED: methylPREDNISolone Sod Succ/PF 125 MG/2 ML VIAL ONE (16:03)
[2018-03-07 16:08] LABS: #Basophils 0.1 thou/uL (0.0-0.2); #Lymphocytes 3.7 thou/uL (1.20-3.40); #Monocytes 0.9 thou/uL (0.11-0.59); #Neutrophils 3.8 thou/uL (1.40-6.50); %Basophils 0.6 % (0.0-1.0); %Eosinophils 10.4 % (0.0-10.0); %Lymphocytes 38.8 % (21.0-51.0); %Monocytes 9.5 % (0.0-10.0); %Neutrophils 40.6 % (42.0-75.0); Hemoglobin 14.5 g/dL (12.0-16.0); Mean Corpuscular HGB CONC 32.1 g/dL (32.0-36.0); Mean Corpuscular Hemoglobin 30.6 pg (27.0-31.0); Mean Corpuscular Volume 95.5 fL (78.0-98.0); Mean Platelet Volume 7.8 fL (7.4-10.4); Platelet Count 321 thou/uL (130-400); RBC Distribution Width 13.2 % (11.5-14.5); Red Blood Cell (RBC) Count 4.75 mill/uL (4.20-5.40); White Blood Cell (WBC) Count 9.4 thou/uL (4.8-10.8)
--- NOTE | 2018-03-07 16:10 | RAD ---
AP VIEW CHEST: HISTORY: Cough. FINDINGS: AP view chest is obtained on 03/07/2018. Comparison is made to a previous exam from 12/11/2017. AP view chest demonstrates the lungs to be well aerated. No evidence of active intrathoracic disease is seen. No evidence of effusions, pneumonia, or pneumothorax is seen. IMPRESSION: Unremarkable AP view chest. POS: [facility]
[2018-03-07 16:34] LABS: Anion Gap 12 mmol/L (10-20); BUN (Urea Nitrogen) 7 mg/dL (7.0-18.7); Calc. Creatinine Clearance 0 mL/min (70-130); Calcium 9.6 mg/dL (7.8-10.44); Carbon Dioxide 23 mmol/L (22-29); Chloride 108 mmol/L (98-107); Estimated GFR-MDRD 77; Glucose 110 mg/dL (70-105); Potassium 3.3 mmol/L (3.5-5.1); Sodium 140 mmol/L (136-145)
--- NOTE | 2018-03-11 12:27 | EKG ---
Test Reason : SOB Blood Pressure : / mmHG Vent. Rate : 079 BPM Atrial Rate : 079 BPM P-R Int : 122 ms QRS Dur : 076 ms QT Int : 380 ms P-R-T Axes : 040 055 071 degrees QTc Int : 435 ms Normal sinus rhythm with sinus arrhythmia Normal ECG Confirmed by GREGG SY ([id number]), pictures editor QUINCY WOLFE ([id number]) on 03/11/2018 12:27:36 PM Referred By: Confirmed By:GREGG SY
== END 2018-03-07 18:25 | disposition home or self-care (01) ==
LOC: ERS 15:19
DX: J44.1 Chronic obstructive pulmonary disease with (acute) exacerbation (principal); I10 Essential (primary) hypertension; G51.0 Bell's palsy; Z86.73 Personal history of transient ischemic attack (TIA), and cerebral infarction without residual deficits; J44.9 Chronic obstructive pulmonary disease, unspecified; F17.210 Nicotine dependence, cigarettes, uncomplicated; Z79.899 Other long term (current) drug therapy
CPT/HCPCS: 36415; 71045; 80048; 84484; 85025; 93005; 94640; 96365; 96375; A4216; J2930; J7620

== ENCOUNTER 2018-06-17 15:55 | Inpatient (IN) | payer OTHER ==
[2018-06-17] MEDS ORDERED: Magnesium 2 GM/50 ML BAG (IN WATER) ONE (16:02)
--- NOTE | 2018-06-17 16:23 | RAD ---
AP VIEW CHEST: 06/17/18 HISTORY: Dyspnea. AP view chest obtained on 06/17/18. Comparison made to previous exam from 03/07/18. AP view chest demonstrates the lungs to be well aerated. No evidence of active intrathoracic disease seen. No evidence of effusions, pneumonia, or pneumothorax seen. IMPRESSION: Unremarkable AP view chest. POS: [facility]
[2018-06-17 16:30] LABS: Analyzer IN Cardio ER; Base Excess (BEa) 0.9 mEq/L (-2.0 to +3.0); CO2 Tension 30.2 mmHg (35.0-45.0); Calcium, Ionized 1.28 mmol/L (1.12-1.30); Carboxyhemoglobin (COHb) 2.4 gm% (0.0-3.0); Hemoglobin (Hb) 15.1 g/dL (12.0-16.0); O2 Tension (PaO2) 86.7 mmHg (80.0-100.0); Potassium - ABG Lab 3.65 mmol/L (3.70-5.30); Puncture Site RBRACH
[2018-06-17 16:38] LABS: #Basophils 0.1 thou/uL (0.0-0.2); #Eosinphils 0.5 thou/uL (0.0-0.7); #Lymphocytes 2.9 thou/uL (1.20-3.40); #Monocytes 0.7 thou/uL (0.11-0.59); #Neutrophils 6.5 thou/uL (1.40-6.50); %Basophils 1.1 % (0.0-1.0); %Eosinophils 4.9 % (0.0-10.0); %Lymphocytes 26.9 % (21.0-51.0); %Monocytes 6.4 % (0.0-10.0); %Neutrophils 60.7 % (42.0-75.0); Hemoglobin 14.5 g/dL (12.0-16.0); Mean Corpuscular HGB CONC 32.5 g/dL (32.0-36.0); Mean Corpuscular Hemoglobin 30.7 pg (27.0-31.0); Mean Corpuscular Volume 94.4 fL (78.0-98.0); Mean Platelet Volume 7.9 fL (7.4-10.4); Platelet Count 277 thou/uL (130-400); RBC Distribution Width 12.9 % (11.5-14.5); Red Blood Cell (RBC) Count 4.72 mill/uL (4.20-5.40); White Blood Cell (WBC) Count 10.8 thou/uL (4.8-10.8)
[2018-06-17 17:03] LABS: ALT (SGPT) 16 U/L (8-55); AST (SGOT) 14 U/L (5-34); Albumin 4.3 g/dL (3.5-5.0); Alkaline Phosphatase 95 U/L (40-150); Anion Gap 15 mmol/L (10-20); BUN (Urea Nitrogen) 8 mg/dL (7.0-18.7); Bilirubin, Total 0.6 mg/dL (0.2-1.2); Calc. Creatinine Clearance 0 mL/min (70-130); Calcium 10.7 mg/dL (7.8-10.44); Carbon Dioxide 19 mmol/L (22-29); Chloride 109 mmol/L (98-107); Estimated GFR-MDRD 78; Globulin 2.9 g/dL (2.4-3.5); Glucose 139 mg/dL (70-105); Protein, Total 7.2 g/dL (6.0-8.3); Sodium 139 mmol/L (136-145)
[2018-06-17 20:10] VITALS: BMI 25.5
[2018-06-17] MEDS ORDERED: Bacteriostatic Water 30 ML VIAL FS PRN (20:29)
[2018-06-17 20:33] LABS: Lactic Acid 3.8 mmol/L (0.5-2.2)
[2018-06-17] MEDS: Gabapentin 300 MG CAP PO SCH (21:07)
[2018-06-17] MEDS: methylPREDNISolone Sod Succ 40 MG VIAL IVP SCH (23:24)
[2018-06-18] MEDS: Guaifenesin DM 100-10/5 ML UDCUP PO PRN ×2 (02:41→20:44)
[2018-06-18] MEDS: methylPREDNISolone Sod Succ 40 MG VIAL IVP SCH ×5 (05:12→23:17)
[2018-06-18] MEDS: Gabapentin 300 MG CAP PO SCH ×2 (08:27→20:45)
[2018-06-18] MEDS: Lisinopril 20 MG TAB PO SCH (08:27)
[2018-06-18] MEDS: Mometasone/Formoterol 120 PUFF INHALER INH SCH (09:45)
--- NOTE | 2018-06-18 18:43 | RAD ---
TWO VIEWS LEFT HIP: History: Left hip pain. FINDINGS: AP and frogleg views of the left hip obtained. Osteophytes seen along the lateral aspect of the left acetabulum. No evidence of acute fractures, sub luxations, or bony lesions seen. IMPRESSION: Osteoarthritis left hip. Otherwise unremarkable two views left hip. POS: [facility]
[2018-06-18 19:00] LABS: Amphetamine Not Detected (NotDetected); Barbiturates Screen Not Detected (NotDetected); Benzodiazepine Screen Not Detected (NotDetected); Cocaine Metabolite Screen Detected (NotDetected); Medtox Control Line Valid? VALID (VALID); Medtox Reader # READER 4; Methadone Not Detected (NotDetected); Methamphetamine Not Detected (NotDetected); Opiate Screen Not Detected (NotDetected); Oxycodone Screen Not Detected (NotDetected); Phencyclidine (PCP) Detected (NotDetected); THC/Cannabinoid Screen Detected (NotDetected); Tricyclic Screen Not Detected (NotDetected)
[2018-06-18] MEDS: guaiFENesin ER 600 MG TAB PO SCH (20:45)
[2018-06-18] MEDS: Amoxicillin/Potassium Clav 875 MG TAB PO SCH (20:45)
[2018-06-19 04:32] LABS: Cocaine Metabolite Screen Detected (NotDetected); Medtox Reader # READER 4; Phencyclidine (PCP) Detected (NotDetected); THC/Cannabinoid Screen Detected (NotDetected)
[2018-06-19 04:33] LABS: Amphetamine Not Detected (NotDetected); Barbiturates Screen Not Detected (NotDetected); Benzodiazepine Screen Not Detected (NotDetected); Medtox Control Line Valid? VALID (VALID); Methadone Not Detected (NotDetected); Methamphetamine Not Detected (NotDetected); Opiate Screen Not Detected (NotDetected); Oxycodone Screen Not Detected (NotDetected); Tricyclic Screen Not Detected (NotDetected)
[2018-06-19] MEDS: Acetaminophen 325 MG TAB PO PRN (05:33)
[2018-06-19] MEDS: methylPREDNISolone Sod Succ 40 MG VIAL IVP SCH ×3 (05:34→18:21)
--- NOTE | 2018-06-19 05:36 | PDOC.EVN ---
Event Note - Event Note Event Note: Linda Washington called at approx 03:30 on 06/19. Patient in bed when I arrived, linda washington called because patient was feeling weak and dizzy after going to the bathroom. Patient endorses dizziness and is closing her eyes, assoc MULTANI. VS 200s/ 100s, HR 130s, labored breathing, saturation 100% on 2L NC. Pt in hospital for COPD exacerbation, hx of asthma. Received breathing treatment about 75min prior. EKG ordered, sinus tach. Nurses ask her to tell me about a phonecall she received earlier in the night and her going downstairs. Patient becomes tearful and anxious and says she does not want to talk about that. Asks me to leave. Nurses tell me that patient has hx of cocaine use, left the floor to go downstairs around midnight to talk to boyfriend/ around midnight for approx 30min. Before going downstairs, HR 90s per telemetry monitoring, 130s when she came back upstairs. Patient has hx of left sided weakness including face, arm, and leg, but is able to ambulate. Pupils reactive to light. Neuro exam significant for left sided weakness which is baseline and stable per patient. NHS scale 0, patient gives poor effort during exam on the left arm and leg, but was able to hold her arms out a couple minutes prior. During the time in the room, patient's HR goes down into the 110s (which was normal range for current hospitalization) and BP improved to 160s/80s. Patient' s breathing no longer labored. Trop drawn, has since returned and negative. Suspect episode is 2/2 cocaine use. Left room approx 04:00
[2018-06-19] MEDS: Mometasone/Formoterol 120 PUFF INHALER INH SCH (07:45)
--- NOTE | 2018-06-19 08:41 | HP ---
CHIEF COMPLAINT: Shortness of breath. HISTORY OF PRESENT ILLNESS: Ms. Sotomayor is a 48-year-old female with past medical history of bronchial asthma, hypertension, and drug abuse, came in because of shortness of breath. The patient has been having shortness of breath for the last 3 days, has been using neb treatments without much improvement. EMS was called. The patient was given several DuoNebs and Solu-Medrol on the way to the hospital. Initially, the patient on CPAP for some time. Later, the patient improved. She was taken off CPAP. Did not have any chest pain, nausea, or vomiting. Has cough with productive white sputum. No fever. Also complained of left hip pain after she had an injury 2 days ago. In the ER, the patient was evaluated and found to be having asthma exacerbation. The patient received magnesium sulfate and DuoNebs. The patient is admitted for further evaluation and management. PAST MEDICAL HISTORY: 1. Bronchial asthma. 2. Hypertension. 3. Hyperlipidemia. 4. Bipolar disorder. 5. History of drug abuse. PAST SURGICAL HISTORY: Status post hysterectomy. CURRENT MEDICATIONS: The patient is on; 1. DuoNebs b.i.d. 2. Symbicort inhaler 160/4.5 two puffs b.i.d. 3. Neurontin 300 mg daily. 4. Lisinopril 10 mg daily. ALLERGIES: NKDA. FAMILY HISTORY: Nothing contributory. SOCIAL HISTORY: The patient lives with family. Smokes one pack a day. Uses cocaine and cannabinoids. REVIEW OF SYSTEMS: CARDIOVASCULAR: No chest pain or shortness of breath. RESPIRATORY: Has cough. No fever. GASTROINTESTINAL: No nausea, vomiting, or abdominal pain. CENTRAL NERVOUS SYSTEM: No headache. No dizziness. PHYSICAL EXAMINATION: GENERAL: The patient is alert, awake, oriented x3. VITAL SIGNS: Temperature 98, pulse 90, respirations 20, blood pressure 150/90. HEENT: Head is normocephalic and atraumatic. Pupils are equal and reactive. Nasopharynx is pink, moist. NECK: Supple. No JVD. LUNGS: Bilateral air entry present. Expiratory wheeze present bilaterally. No rales. HEART: S1 and S2. Regular. ABDOMEN: Soft. No distention. No tenderness. Normal bowel sounds. RECTAL: No symptoms. CENTRAL NERVOUS SYSTEM: No focal deficits. LABORATORY DATA: CBC showed WBC 10.8, hemoglobin 14, hematocrit 44, platelets 277. Metabolic panel; sodium 139, potassium 4, chloride 109, CO2 of 19, BUN 8, creatinine 0.93, glucose 139. ABG showed pH 7.5, pCO2 30, PO2 86. EKG shows normal sinus rhythm, no acute ST-T changes seen. ASSESSMENT: 1. Bronchial asthma with acute exacerbation. 2. Acute on chronic respiratory failure. 3. Hypertension. 4. Complaints of left hip pain. 5. Bipolar disorder. 6. History of polysubstance abuse. PLAN: 1. Vital signs q.4. 2. Activity as tolerated. 3. Allergies: NKDA. 4. Hep-Lock. 5. Solu-Medrol 20 mg IV piggyback q.6 hours. 6. DuoNebs 1 unit q.4 hours. 7. Mucinex 600 mg b.i.d. 8. Continue home medications. 9. We will get an x-ray of the hip. Job ID: [id number] MTDD
[2018-06-19] MEDS: Lisinopril 20 MG TAB PO SCH (09:53)
[2018-06-19] MEDS: Sodium Chloride 0.9% 10 ML ONE ×2 (09:53→18:21)
[2018-06-19] MEDS: Amoxicillin/Potassium Clav 875 MG TAB PO SCH ×2 (09:53→20:45)
[2018-06-19] MEDS: Gabapentin 300 MG CAP PO SCH ×2 (09:53→20:45)
[2018-06-19] MEDS: guaiFENesin ER 600 MG TAB PO SCH ×2 (09:53→20:45)
[2018-06-19] MEDS ORDERED: Sodium Chloride 0.9% 10 ML ONE (13:12)
[2018-06-19] MEDS ORDERED: Sodium Chloride 0.9% 100 ML ONE (16:07)
[2018-06-20] MEDS ORDERED: Sodium Chloride 0.9% 10 ML ONE (00:09)
[2018-06-20] MEDS: methylPREDNISolone Sod Succ 40 MG VIAL IVP SCH ×4 (00:12→18:14)
[2018-06-20] MEDS: Guaifenesin DM 100-10/5 ML UDCUP PO PRN ×2 (05:10→18:13)
[2018-06-20] MEDS: Mometasone/Formoterol 120 PUFF INHALER INH SCH (06:54)
[2018-06-20] MEDS: guaiFENesin ER 600 MG TAB PO SCH ×2 (08:46→20:20)
[2018-06-20] MEDS: Amoxicillin/Potassium Clav 875 MG TAB PO SCH ×2 (08:46→20:19)
[2018-06-20] MEDS: Gabapentin 300 MG CAP PO SCH ×2 (08:46→20:19)
[2018-06-20] MEDS: Lisinopril 20 MG TAB PO SCH (08:46)
--- NOTE | 2018-06-20 09:32 | EKG ---
Test Reason : CODE GREEN Blood Pressure : / mmHG Vent. Rate : 133 BPM Atrial Rate : 133 BPM P-R Int : 122 ms QRS Dur : 064 ms QT Int : 294 ms P-R-T Axes : 070 048 069 degrees QTc Int : 437 ms Sinus tachycardia Nonspecific ST abnormality Abnormal ECG When compared with ECG of 17-JUN-2018 16:04, (Unconfirmed) Sinus rhythm has replaced Atrial fibrillation ST now depressed in Lateral leads Confirmed by DR. Nnamdi SANTAMARIA ([id number]) on 06/20/2018 9:32:12 AM Referred By: VALERIE Confirmed By:DR. Nnamdi SANTAMARIA
[2018-06-20] MEDS: Budesonide 0.5 MG/2 ML NEB NEB SCH (18:23)
[2018-06-21] MEDS: methylPREDNISolone Sod Succ 40 MG VIAL IVP SCH ×4 (00:38→17:12)
[2018-06-21] MEDS: Acetaminophen 325 MG TAB PO PRN (01:19)
[2018-06-21] MEDS: Guaifenesin DM 100-10/5 ML UDCUP PO PRN (01:20)
[2018-06-21] MEDS: Mometasone/Formoterol 120 PUFF INHALER INH SCH (06:40)
[2018-06-21] MEDS: Budesonide 0.5 MG/2 ML NEB NEB SCH ×2 (06:43→19:34)
[2018-06-21] MEDS: Lisinopril 20 MG TAB PO SCH (08:50)
[2018-06-21] MEDS: Gabapentin 300 MG CAP PO SCH ×2 (08:50→20:39)
[2018-06-21] MEDS: Amoxicillin/Potassium Clav 875 MG TAB PO SCH ×2 (08:50→20:39)
[2018-06-21] MEDS: guaiFENesin ER 600 MG TAB PO SCH ×2 (08:50→20:39)
[2018-06-21] MEDS ORDERED: predniSONE 20 MG TAB PO SCH (21:00)
[2018-06-22] MEDS: Budesonide 0.5 MG/2 ML NEB NEB SCH (06:48)
[2018-06-22] MEDS: Mometasone/Formoterol 120 PUFF INHALER INH SCH (06:51)
[2018-06-22] MEDS: Lisinopril 20 MG TAB PO SCH (08:55)
[2018-06-22] MEDS: Amoxicillin/Potassium Clav 875 MG TAB PO SCH (08:55)
[2018-06-22] MEDS: guaiFENesin ER 600 MG TAB PO SCH (08:56)
[2018-06-22] MEDS: Gabapentin 300 MG CAP PO SCH (08:56)
[2018-06-22] MEDS ORDERED: predniSONE 20 MG TAB PO SCH (09:00)
[2018-06-22 13:21] VITALS: BP 127/75; TEMP 98
== END 2018-06-22 17:19 | disposition home or self-care (01) | DRG 202 ==
LOC: ERS 15:55 → EEVIPCON 17:19 → 2NO 17:19
PROVIDERS: ADMIT Internal Medicine; ATTEND Internal Medicine
DX: J45.901 Unspecified asthma with (acute) exacerbation (principal); J96.20 Acute and chronic respiratory failure, unspecified whether with hypoxia or hypercapnia; I10 Essential (primary) hypertension; M25.552 Pain in left hip; F31.9 Bipolar disorder, unspecified; F41.9 Anxiety disorder, unspecified; E78.5 Hyperlipidemia, unspecified
CPT/HCPCS: 36415; 36416; 71045; 80053; 80306; 82805; 83605; 83880; 84484; 85025; 90471; 90686; 93005; 93010; 94640; 94660; 94664; 96365; G0008; J2920; J3475; J7050; J7620; J7626

== ENCOUNTER 2018-08-04 15:55 | Inpatient (IN) | payer OTHER ==
[2018-08-04] MEDS ORDERED: Magnesium 2 GM/50 ML BAG (IN WATER) ONE (16:25)
[2018-08-04] MEDS ORDERED: methylPREDNISolone Sod Succ/PF 125 MG/2 ML VIAL ONE (16:25)
[2018-08-04] MEDS ORDERED: Albuterol Sulfate 2.5 mg/3 ml Neb ONE (16:40)
[2018-08-04] MEDS ORDERED: Albuterol Sulfate 2.5 mg/0.5 ml Neb ONE (16:40)
[2018-08-04 16:50] LABS: #Basophils 0.1 thou/uL (0.0-0.2); #Eosinphils 0.4 thou/uL (0.0-0.7); #Lymphocytes 4.1 thou/uL (1.20-3.40); #Monocytes 0.9 thou/uL (0.11-0.59); #Neutrophils 4.6 thou/uL (1.40-6.50); %Basophils 1.2 % (0.0-1.0); %Eosinophils 3.9 % (0.0-10.0); %Lymphocytes 40.9 % (21.0-51.0); %Monocytes 8.4 % (0.0-10.0); %Neutrophils 45.6 % (42.0-75.0); Hemoglobin 14.6 g/dL (12.0-16.0); Mean Corpuscular HGB CONC 32.4 g/dL (32.0-36.0); Mean Corpuscular Hemoglobin 29.9 pg (27.0-31.0); Mean Corpuscular Volume 92.2 fL (78.0-98.0); Mean Platelet Volume 8.3 fL (7.4-10.4); Platelet Count 253 thou/uL (130-400); RBC Distribution Width 13.3 % (11.5-14.5); Red Blood Cell (RBC) Count 4.88 mill/uL (4.20-5.40)
[2018-08-04 17:10] LABS: ALT (SGPT) 14 U/L (8-55); AST (SGOT) 17 U/L (5-34); Albumin 4.3 g/dL (3.5-5.0); Alkaline Phosphatase 89 U/L (40-150); Anion Gap 13 mmol/L (10-20); BUN (Urea Nitrogen) 13 mg/dL (7.0-18.7); Bilirubin, Total 0.2 mg/dL (0.2-1.2); CK (CPK) 56 U/L (29-168); Calc. Creatinine Clearance 0 mL/min (70-130); Calcium 10.7 mg/dL (7.8-10.44); Carbon Dioxide 22 mmol/L (22-29); Chloride 108 mmol/L (98-107); Estimated GFR-MDRD 75; Globulin 3.5 g/dL (2.4-3.5); Glucose 102 mg/dL (70-105); Potassium 4.1 mmol/L (3.5-5.1); Protein, Total 7.8 g/dL (6.0-8.3); Sodium 139 mmol/L (136-145)
--- NOTE | 2018-08-04 17:12 | RAD ---
CHEST ONE VIEW: 08/04/18 COMPARISON: 06/17/18 HISTORY: Asthma flare up x2 to 3 days. FINDINGS: Normal cardiac silhouette. Lungs and pleural spaces are clear. No pneumothorax or osseous abnormaliti es. IMPRESSION: No acute cardiopulmonary process. POS: [facility]
[2018-08-04 17:36] LABS: Actual Bicarbonate (HCO3a) 22.1 mEq/L (22-28); Analyzer IN Cardio ER; Base Excess (BEa) -1.3 mEq/L (-2.0 to +3.0); CO2 Tension 33.9 mmHg (35.0-45.0); Calcium, Ionized 1.35 mmol/L (1.12-1.30); Hemoglobin (Hb) 15.2 g/dL (12.0-16.0); O2 Tension (PaO2) 83.3 mmHg (80.0-100.0); Potassium - ABG Lab 3.51 mmol/L (3.70-5.30); pH, Arterial 7.43 (7.35-7.45)
[2018-08-04 17:37] LABS: ALV-art Gradient 159.525 (0-20); Puncture Site RRA
[2018-08-04] MEDS ORDERED: Acetaminophen 325 MG TAB PO PRN (19:43)
[2018-08-04] MEDS ORDERED: Bacteriostatic Water 30 ML VIAL FS PRN (20:13)
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
[2018-08-04 20:33] LABS: Troponin I Less than 0.010 ng/mL (< 0.028)
[2018-08-04] MEDS: Gabapentin 300 MG CAP PO SCH (20:47)
--- NOTE | 2018-08-04 22:31 | RAD ---
Frontal and lateral imaging right tibia/fibula: 08/04/2018 COMPARISON: None HISTORY: Injury, trauma, pain FINDINGS: No fracture or dislocation. No radiopaque foreign body or subcutaneous gas. IMPRESSION: No acute findings.
[2018-08-04] MEDS: Albuterol Sulfate 2.5 mg/3 ml Neb NEB SCH ×2 (23:03→23:04)
[2018-08-04 23:05] LABS: Troponin I Less than 0.010 ng/mL (< 0.028)
[2018-08-04] MEDS: methylPREDNISolone Sod Succ 40 MG VIAL IVP SCH (23:10)
[2018-08-04] MEDS ORDERED: methylPREDNISolone Sod Succ 40 MG VIAL IVP SCH (23:59)
[2018-08-05] MEDS: Albuterol Sulfate 2.5 mg/3 ml Neb NEB SCH ×5 (01:52→07:37)
[2018-08-05 03:27] VITALS: BMI 27.0
[2018-08-05] MEDS: methylPREDNISolone Sod Succ 40 MG VIAL IVP SCH ×4 (05:35→21:06)
[2018-08-05 06:30] LABS: #Eosinphils 0.1 thou/uL (0.0-0.7); #Lymphocytes 1.4 thou/uL (1.20-3.40); #Monocytes 0.6 thou/uL (0.11-0.59); %Eosinophils 0.6 % (0.0-10.0); %Lymphocytes 9.8 % (21.0-51.0); %Monocytes 4.1 % (0.0-10.0); %Neutrophils 85.4 % (42.0-75.0); Hemoglobin 13.5 g/dL (12.0-16.0); Mean Corpuscular HGB CONC 33.1 g/dL (32.0-36.0); Mean Corpuscular Hemoglobin 31.1 pg (27.0-31.0); Mean Corpuscular Volume 93.8 fL (78.0-98.0); Mean Platelet Volume 8.7 fL (7.4-10.4); Platelet Count 238 thou/uL (130-400); RBC Distribution Width 13.3 % (11.5-14.5); Red Blood Cell (RBC) Count 4.33 mill/uL (4.20-5.40); White Blood Cell (WBC) Count 14.1 thou/uL (4.8-10.8)
[2018-08-05] MEDS ORDERED: Arformoterol 15 MCG/2 ML NEB NEB SCH (06:30)
[2018-08-05 06:51] LABS: Anion Gap 15 mmol/L (10-20); BUN (Urea Nitrogen) 12 mg/dL (7.0-18.7); Calc. Creatinine Clearance 82 mL/min (70-130); Calcium 10.6 mg/dL (7.8-10.44); Carbon Dioxide 19 mmol/L (22-29); Chloride 108 mmol/L (98-107); Estimated GFR-MDRD 70; Glucose 241 mg/dL (70-105); Potassium 4.1 mmol/L (3.5-5.1); Sodium 138 mmol/L (136-145)
[2018-08-05] MEDS: Budesonide 0.5 MG/2 ML NEB INH SCH ×2 (07:36→18:24)
[2018-08-05] MEDS: Gabapentin 300 MG CAP PO SCH ×2 (08:46→20:21)
[2018-08-05] MEDS ORDERED: Albuterol Sulfate 1.25 MG/3 ML NEB NEB PRN (09:09)
--- NOTE | 2018-08-05 09:12 | PDOC.PN ---
- Subjective Encounter Start Date: 08/05/18 (f/u asthma exacerbation) Encounter Start Time: 09:10 Subjective: Pt reports feeling better today- breathing better, did not require the -: bipap overnight. Denies any concerns/complaints - Objective Resuscitation Status - Order Detail: 08/04/18 19:43 Resuscitation Status Routine Resuscitation Status: FULL: Full Resuscitation Vital Signs & Weight: Vital Signs (12 hours) Temp Pulse Resp Pulse Ox 08/05/18 08:00 98 08/05/18 07:35 84 20 100 08/05/18 07:33 98.2 F 08/05/18 05:07 98 08/05/18 05:06 99 08/05/18 03:48 98 08/05/18 03:46 98.4 F 08/05/18 01:53 98 08/05/18 00:00 98 08/04/18 23:35 98.2 F 08/04/18 23:05 100 08/04/18 23:03 100 08/04/18 22:48 100 Weight Weight 172 lb 6.4 oz Most Recent Monitor Data Heart Rate from ECG 91 NIBP 135/77 NIBP BP-Mean 96 Respiration from ECG 20 SpO2 99 I&O: 08/04/18 08/05/18 08/06/18 06:59 06:59 06:59 Intake Total 580 Balance 580 Result Diagrams: 08/05/18 05:54 08/05/18 05:54 EKG Reviewed by me: Yes (sinus 90's, occ pvc's) Phys Exam - Physical Examination Constitutional: NAD Respiratory: no rales, no rhonchi wheezing throughout, improved air movement but less than normal Cardiovascular: RRR Gastrointestinal: soft, non-tender, no distention, positive bowel sounds Musculoskeletal: no edema, pulses present ttp along the mid-tibia - small protuberance of bone - unchanged Psychiatric: normal affect Skin: no rash Dx/Plan (1) Asthma exacerbation Code(s): J45.901 - UNSPECIFIED ASTHMA WITH (ACUTE) EXACERBATION Status: Acute Qualifiers: Asthma severity: severe (2) Hypertension Code(s): I10 - ESSENTIAL (PRIMARY) HYPERTENSION Status: Chronic (3) Leg pain Status: Acute Qualifiers: Laterality: right Qualified Code(s): M79.604 - Pain in right leg (4) Polysubstance abuse Code(s): F19.10 - OTHER PSYCHOACTIVE SUBSTANCE ABUSE, UNCOMPLICATED Status: Acute (5) Tobacco abuse Code(s): Z72.0 - TOBACCO USE Status: Acute - Plan * overall improved with interventions from yesterday * continue duoneb at q6h * change albuterol to q2h prn * continue brovana/pulmicort nebs * continue solumedrol - change to prednisone tomorrow. * leg pain - neg tib/fib xray - pain meds prn * htn - normal bp's here - hold home med * continue gabapentin - home med * for social stressors/safety - pt met with Ronald RUTLEDGE yesterday, consult to case management for assistance with this as well. * * anticipate d/c in the next 1-2 days - pt is improved, on room air, however still having considerable wheezing this morning and is high risk for repeat admission. * * dvt prophy - ambulatory * gi prophy - not indicated * code status full
--- NOTE | 2018-08-05 17:44 | CON ---
DATE OF CONSULTATION: HISTORY OF PRESENT ILLNESS: She is a 48-year-old female, who sees Dr. Treviño in our office. Primary care physician not available. She has started having difficulty breathing, coughing, and wheezing because she ran out of her medication. She smokes four cigarettes a day. She has a history of substance abuse, marijuana, and cocaine. In the ER, she came and the ER physician notified me as she has significant wheezing. She was given continuous neb treatments, steroids, and magnesium to which she has improved. She is now in the MICU. Much improved. PAST MEDICAL HISTORY: Pertinent for Doe's palsy, hypertension, COPD, and asthma. PAST SURGICAL HISTORY: , hysterectomy. MEDICATIONS: From home; 1. Lisinopril 20. 2. DuoNeb. 3. Gabapentin 600. 4. Symbicort 160. ALLERGIES: NONE. SOCIAL AND FAMILY HISTORY: She is presently unemployed. REVIEW OF SYSTEMS: Ten-point negative. PHYSICAL EXAMINATION: VITAL SIGNS: O2 saturation is 97 on room air, blood pressure 134/79, and respiratory rate 18. CHEST: No wheezing. CARDIAC: Sinus tach. ABDOMEN: Soft without any masses. LABORATORY DATA: White count 14,000. Lytes are normal. A pO2 was 83, pCO2 was 33 . Lytes are normal. Calcium is slightly elevated. Lactic acid is normal. Chest x-ray clear. She had an x-ray taken of the tibia and fibula . IMPRESSION AND PLAN: Chronic obstructive pulmonary disease asthma exacerbation and substance abuse of PCP, cocaine, and cannabinoids. She is much improved. She could be transferred to medical floor. Switch over to oral medication to be discharged home in the next 24 to 48 hours. Job ID: [id number]
[2018-08-05] MEDS: Mometasone/Formoterol 120 PUFF INHALER INH SCH (18:25)
[2018-08-06] MEDS: methylPREDNISolone Sod Succ 40 MG VIAL IVP SCH (04:56)
[2018-08-06 06:34] LABS: Anion Gap 13 mmol/L (10-20); BUN (Urea Nitrogen) 13 mg/dL (7.0-18.7); Calc. Creatinine Clearance 97 mL/min (70-130); Calcium 10.5 mg/dL (7.8-10.44); Carbon Dioxide 23 mmol/L (22-29); Chloride 109 mmol/L (98-107); Estimated GFR-MDRD 84; Glucose 174 mg/dL (70-105); Potassium 4.8 mmol/L (3.5-5.1); Sodium 140 mmol/L (136-145)
[2018-08-06 06:41] LABS: Band 7 % (5-11); Hemoglobin 12.8 g/dL (12.0-16.0); Lymphocytes 8 % (21-51); MDiff Complete? YES; Mean Corpuscular HGB CONC 32.4 g/dL (32.0-36.0); Mean Corpuscular Hemoglobin 30.4 pg (27.0-31.0); Mean Corpuscular Volume 93.8 fL (78.0-98.0); Mean Platelet Volume 8.6 fL (7.4-10.4); Monocytes 6 % (0-10); Neutrophil 79 % (42-75); Platelet Count 242 thou/uL (130-400); Platelet Morphology Comment Appears Adequate; RBC Distribution Width 13.3 % (11.5-14.5); Red Blood Cell (RBC) Count 4.19 mill/uL (4.20-5.40); White Blood Cell (WBC) Count 29.3 thou/uL (4.8-10.8)
[2018-08-06] MEDS: Budesonide 0.5 MG/2 ML NEB INH SCH ×2 (06:56→19:16)
[2018-08-06] MEDS: Mometasone/Formoterol 120 PUFF INHALER INH SCH ×2 (07:16→19:18)
--- NOTE | 2018-08-06 08:25 | PDOC.PN ---
- Subjective Encounter Start Date: 08/06/18 (f/u asthma) Encounter Start Time: 08:24 Subjective: Pt reports today is the same as yesterday - wheezing now, coughing -: and chest feels tight. Last night episode of coughing/vomiting - Objective Resuscitation Status - Order Detail: 08/04/18 19:43 Resuscitation Status Routine Resuscitation Status: FULL: Full Resuscitation Vital Signs & Weight: Vital Signs (12 hours) Temp Pulse Resp Pulse Ox 08/06/18 08:19 98 100 H 22 L 08/06/18 07:55 99 08/06/18 07:16 77 20 98 08/06/18 07:00 98.2 F 08/06/18 06:56 84 18 100 08/06/18 06:54 84 18 100 08/06/18 03:00 98.0 F 08/05/18 23:00 97.9 F Weight Weight 172 lb 6.4 oz Most Recent Monitor Data Heart Rate from ECG 72 NIBP 95/55 NIBP BP-Mean 68 Respiration from ECG 26 SpO2 100 I&O: 08/05/18 08/06/18 08/07/18 06:59 06:59 06:59 Intake Total 580 1222 Balance 580 1222 Result Diagrams: 08/06/18 05:54 08/06/18 05:54 EKG Reviewed by me: Yes (tele - sinus 100's, PVC's) Phys Exam - Physical Examination Constitutional: NAD Respiratory: no rales wheezing, fair air movement, frequent coughing with inspiration Cardiovascular: RRR, no significant murmur Gastrointestinal: soft, non-tender, no distention, positive bowel sounds Musculoskeletal: no edema Neurological: non-focal Psychiatric: normal affect Skin: no rash Dx/Plan (1) Asthma exacerbation Code(s): J45.901 - UNSPECIFIED ASTHMA WITH (ACUTE) EXACERBATION Status: Acute Qualifiers: Asthma severity: severe (2) Hypertension Code(s): I10 - ESSENTIAL (PRIMARY) HYPERTENSION Status: Chronic (3) Leg pain Status: Acute Qualifiers: Laterality: right Qualified Code(s): M79.604 - Pain in right leg (4) Polysubstance abuse Code(s): F19.10 - OTHER PSYCHOACTIVE SUBSTANCE ABUSE, UNCOMPLICATED Status: Acute (5) Tobacco abuse Code(s): Z72.0 - TOBACCO USE Status: Acute (6) Elevated blood sugar Code(s): R73.9 - HYPERGLYCEMIA, UNSPECIFIED Status: Acute - Plan * * overall improved compared to admission, continues to wheeze: * change duoneb at q4h * continue albuterol to q2h prn * continue brovana/pulmicort nebs * change to prednisone daily - will need taper at discharge. Elevated WBC - attribute to high dose steroids * for allergies - will add nasal steroid, claritin daily and singulair daily * transfer to medical floor * leg pain - neg tib/fib xray - pain meds prn * htn - normal bp's here - hold home med * continue gabapentin - home med * for social stressors/safety - pt met with Ronald RUTLEDGE on day of admission, consult to case management for assistance with this as well. * * still anticipate d/c in the next 1-2 days based on response to treatment. Issues to address prior to discharge are obtaining nebulizer machine and support /resources for safety * * dvt prophy - ambulatory * gi prophy - not indicated * code status full.
[2018-08-06] MEDS: Fluticasone Propionate Nasal Spray 16 gm Bottle NASAL SCH ×2 (09:19→20:25)
[2018-08-06] MEDS: Gabapentin 300 MG CAP PO SCH ×2 (09:19→20:26)
[2018-08-06] MEDS: Loratadine 10 MG TAB PO SCH (09:19)
[2018-08-06] MEDS: guaiFENesin/DM ER PO SCH ×2 (09:34→20:26)
--- NOTE | 2018-08-06 11:47 | PRG ---
DATE OF SERVICE: SUBJECTIVE: This morning, she is better, less coughing, and less wheezing, but she has clearly improved. OBJECTIVE: VITAL SIGNS: Saturations are 100%, pulse 101, blood pressure 130/85, respiratory rate 22, pulse 98. CHEST: Bilateral wheezing. CARDIAC: Sinus tach. ABDOMEN: Soft. LABORATORY DATA: White count 29,000, H and H of 12 and 39, and platelet count is normal. Glucose elevated. Calcium 10.5. IMPRESSION: 1. Bronchial asthma exacerbation. 2. Multidrug abuse. PLAN: She is on Singulair, prednisone, neb treatment, Dulera. Magnesium is being given. We will follow and notify Dr. Treviño. Job ID: [id number]
[2018-08-06] MEDS ORDERED: Magnesium 2 GM/50 ML 2 GM in Premix Bag 1 BAG IVPB SCH (12:00)
[2018-08-06] MEDS: Montelukast Sodium 10 mg Tablet PO SCH (20:26)
[2018-08-07] MEDS ORDERED: Senokot 8.6 MG TAB PO PRN (04:15)
[2018-08-07] MEDS ORDERED: Polyethylene Glycol 3350 17 GM Packet PO SCH (04:15)
[2018-08-07 05:47] LABS: #Eosinphils 0.1 thou/uL (0.0-0.7); #Lymphocytes 3.9 thou/uL (1.20-3.40); #Monocytes 1.5 thou/uL (0.11-0.59); #Neutrophils 12.5 thou/uL (1.40-6.50); %Basophils 0.1 % (0.0-1.0); %Eosinophils 0.4 % (0.0-10.0); %Lymphocytes 21.5 % (21.0-51.0); %Monocytes 8.3 % (0.0-10.0); %Neutrophils 69.6 % (42.0-75.0); Mean Corpuscular HGB CONC 32.1 g/dL (32.0-36.0); Mean Corpuscular Hemoglobin 30.2 pg (27.0-31.0); Mean Corpuscular Volume 94.2 fL (78.0-98.0); Mean Platelet Volume 7.8 fL (7.4-10.4); Platelet Count 265 thou/uL (130-400); RBC Distribution Width 13.3 % (11.5-14.5); White Blood Cell (WBC) Count 17.9 thou/uL (4.8-10.8)
[2018-08-07 06:04] LABS: Anion Gap 12 mmol/L (10-20); BUN (Urea Nitrogen) 13 mg/dL (7.0-18.7); Calc. Creatinine Clearance 97 mL/min (70-130); Calcium 9.6 mg/dL (7.8-10.44); Carbon Dioxide 22 mmol/L (22-29); Chloride 108 mmol/L (98-107); Estimated GFR-MDRD 84; Glucose 116 mg/dL (70-105); Potassium 3.8 mmol/L (3.5-5.1); Sodium 138 mmol/L (136-145)
--- NOTE | 2018-08-07 07:30 | PDOC.PN ---
- Subjective Encounter Start Date: 08/07/18 - Objective Resuscitation Status - Order Detail: 08/04/18 19:43 Resuscitation Status Routine Resuscitation Status: FULL: Full Resuscitation MAR Reviewed: Yes Vital Signs & Weight: Vital Signs (12 hours) Temp Pulse Resp BP Pulse Ox 08/07/18 04:03 98.1 F 84 18 150/79 H 100 08/07/18 04:00 94 L 08/07/18 03:59 94 L 08/07/18 02:09 96 08/07/18 00:00 98.2 F 139/84 08/06/18 22:39 89 16 94 L 08/06/18 20:00 96 Weight Weight 172 lb 6.4 oz Most Recent Monitor Data Heart Rate from ECG 89 NIBP 139/84 NIBP BP-Mean 102 Respiration from ECG 20 SpO2 97 I&O: 08/06/18 08/07/18 08/08/18 06:59 06:59 06:59 Intake Total 1222 0 Balance 1222 0 Result Diagrams: 08/07/18 05:30 08/07/18 05:30 Dx/Plan (1) Asthma exacerbation Code(s): J45.901 - UNSPECIFIED ASTHMA WITH (ACUTE) EXACERBATION Status: Acute Qualifiers: Asthma severity: severe Comment: nebs, steroids (2) Polysubstance abuse Code(s): F19.10 - OTHER PSYCHOACTIVE SUBSTANCE ABUSE, UNCOMPLICATED Status: Acute (3) Tobacco abuse Code(s): Z72.0 - TOBACCO USE Status: Acute (4) Elevated blood sugar Code(s): R73.9 - HYPERGLYCEMIA, UNSPECIFIED Status: Acute Comment: likely due to steroids (5) Hypertension Code(s): I10 - ESSENTIAL (PRIMARY) HYPERTENSION Status: Chronic - Plan cont current plan of care, respiratory therapy * .
[2018-08-07] MEDS: Mometasone/Formoterol 120 PUFF INHALER INH SCH ×2 (07:39→18:29)
[2018-08-07] MEDS: Budesonide 0.5 MG/2 ML NEB INH SCH ×2 (07:42→18:29)
[2018-08-07] MEDS: Loratadine 10 MG TAB PO SCH (08:52)
[2018-08-07] MEDS: predniSONE 20 MG TAB PO SCH (08:52)
[2018-08-07] MEDS: Gabapentin 300 MG CAP PO SCH ×2 (08:52→20:12)
[2018-08-07] MEDS: Fluticasone Propionate Nasal Spray 16 gm Bottle NASAL SCH ×2 (08:53→20:14)
[2018-08-07] MEDS: guaiFENesin/DM ER PO SCH ×2 (08:54→20:12)
[2018-08-07] MEDS: Montelukast Sodium 10 mg Tablet PO SCH (20:13)
[2018-08-07 22:05] LABS: Amphetamine Not Detected (NotDetected); Barbiturates Screen Not Detected (NotDetected); Benzodiazepine Screen Not Detected (NotDetected); Cocaine Metabolite Screen Not Detected (NotDetected); Medtox Control Line Valid? VALID (VALID); Medtox Reader # READER 1; Methadone Not Detected (NotDetected); Methamphetamine Not Detected (NotDetected); Opiate Screen Not Detected (NotDetected); Oxycodone Screen Not Detected (NotDetected); Phencyclidine (PCP) Detected (NotDetected); THC/Cannabinoid Screen Not Detected (NotDetected); Tricyclic Screen Not Detected (NotDetected)
[2018-08-08 07:36] VITALS: BP 130/71; TEMP 97.5
[2018-08-08] MEDS: Mometasone/Formoterol 120 PUFF INHALER INH SCH ×2 (07:36→18:00)
[2018-08-08] MEDS: Budesonide 0.5 MG/2 ML NEB INH SCH ×2 (07:39→17:59)
[2018-08-08] MEDS: Fluticasone Propionate Nasal Spray 16 gm Bottle NASAL SCH (08:17)
[2018-08-08] MEDS: Loratadine 10 MG TAB PO SCH (08:17)
[2018-08-08] MEDS: Gabapentin 300 MG CAP PO SCH (08:17)
[2018-08-08] MEDS: predniSONE 20 MG TAB PO SCH (08:17)
[2018-08-08] MEDS: guaiFENesin/DM ER PO SCH (09:08)
== END 2018-08-08 19:17 | disposition home or self-care (01) | DRG 203 ==
LOC: ERS 15:55 → EEVIPCON 15:55 → IMCU/EMU 19:27 → ONC 08-07 01:41
PROVIDERS: ADMIT Family Medicine; ATTEND Family Medicine
DX: J45.901 Unspecified asthma with (acute) exacerbation (principal); G51.0 Bell's palsy; G89.29 Other chronic pain; M79.662 Pain in left lower leg; I10 Essential (primary) hypertension; F17.210 Nicotine dependence, cigarettes, uncomplicated; E83.52 Hypercalcemia; J44.9 Chronic obstructive pulmonary disease, unspecified; Z90.710 Acquired absence of both cervix and uterus; Z79.899 Other long term (current) drug therapy; Z79.51 Long term (current) use of inhaled steroids
CPT/HCPCS: 36415; 71045; 80048; 80053; 80306; 82550; 82805; 83605; 84484; 85025; 87040; 93005; 94640; 94644; 94660; 94760; 96365; 96375; 99406; J2920; J2930; J3475; J7512; J7611; J7620; J7626

== ENCOUNTER 2019-03-09 15:54 | Inpatient (IN) | payer OTHER ==
[2019-03-09] MEDS ORDERED: Sodium Chloride For Inhalation 0.9% 3 ML NEB ONE (16:12)
[2019-03-09] MEDS ORDERED: Albuterol Sulfate 1.25 MG/3 ML NEB ONE (16:12)
--- NOTE | 2019-03-09 16:29 | RAD ---
EXAM: Single view of the chest HISTORY: Dyspnea COMPARISON: 08/04/2018 FINDINGS: Single view of the chest shows a normal sized cardiomediastinal silhouette. There is no makenna dence of consolidation, mass, or pleural effusion. The bones are unremarkable. IMPRESSION: No evidence of acute cardiopulmonary disease
[2019-03-09 16:39] LABS: Actual Bicarbonate (HCO3a) 26.6 mEq/L (22-28); Analyzer IN Cardio ER; Base Excess (BEa) 0.7 mEq/L (-2.0 to +3.0); CO2 Tension 47.7 mmHg (35.0-45.0); Calcium, Ionized 1.35 mmol/L (1.12-1.30); Carboxyhemoglobin (COHb) 2.2 gm% (0.0-3.0); Hemoglobin (Hb) 14.5 g/dL (12.0-16.0); O2 Tension (PaO2) 74.1 mmHg (80.0-100.0); Potassium - ABG Lab 3.61 mmol/L (3.70-5.30); pH, Arterial 7.37 (7.35-7.45)
[2019-03-09 16:43] LABS: ALV-art Gradient 65.915 (0-20); Puncture Site L.B.
[2019-03-09 16:58] LABS: #Eosinphils 0.5 thou/uL (0.0-0.7); #Lymphocytes 2.6 thou/uL (1.20-3.40); #Monocytes 0.8 thou/uL (0.11-0.59); #Neutrophils 6.8 thou/uL (1.40-6.50); %Basophils 0.4 % (0.0-1.0); %Lymphocytes 23.8 % (21.0-51.0); %Monocytes 7.4 % (0.0-10.0); %Neutrophils 63.4 % (42.0-75.0); Hemoglobin 14.4 g/dL (12.0-16.0); Mean Corpuscular HGB CONC 33.3 g/dL (32.0-36.0); Mean Corpuscular Hemoglobin 30.5 pg (27.0-31.0); Mean Corpuscular Volume 91.5 fL (78.0-98.0); Mean Platelet Volume 8.3 fL (7.4-10.4); Platelet Count 317 thou/uL (130-400); RBC Distribution Width 13.1 % (11.5-14.5); Red Blood Cell (RBC) Count 4.74 mill/uL (4.20-5.40); White Blood Cell (WBC) Count 10.8 thou/uL (4.8-10.8)
[2019-03-09 17:24] LABS: ALT (SGPT) 11 U/L (8-55); AST (SGOT) 15 U/L (5-34); Albumin 4.3 g/dL (3.5-5.0); Alkaline Phosphatase 101 U/L (40-110); Anion Gap 12 mmol/L (10-20); BUN (Urea Nitrogen) 7 mg/dL (7.0-18.7); Bilirubin, Total 0.6 mg/dL (0.2-1.2); Calc. Creatinine Clearance 0 mL/min (70-130); Calcium 10.3 mg/dL (7.8-10.44); Carbon Dioxide 22 mmol/L (22-29); Chloride 110 mmol/L (98-107); Estimated GFR-MDRD 80; Globulin 3.5 g/dL (2.4-3.5); Glucose 111 mg/dL (70-105); Potassium 3.9 mmol/L (3.5-5.1); Protein, Total 7.8 g/dL (6.0-8.3); Sodium 140 mmol/L (136-145)
[2019-03-09] MEDS ORDERED: Bacteriostatic Water 30 ML VIAL FS PRN (19:42)
[2019-03-09] MEDS ORDERED: methylPREDNISolone Sod Succ 40 MG VIAL IVP SCH (19:45)
[2019-03-09 19:46] VITALS: BMI 28.2
[2019-03-09] MEDS ORDERED: Mometasone/Formoterol 120 PUFF INHALER INH SCH (20:00)
[2019-03-09] MEDS: guaiFENesin ER 600 MG TAB PO SCH (20:09)
[2019-03-09] MEDS: Mometasone/Formoterol 120 PUFF INHALER INH SCH (20:13)
[2019-03-10] MEDS: methylPREDNISolone Sod Succ 40 MG VIAL IVP SCH ×3 (00:23→12:30)
--- NOTE | 2019-03-10 02:13 | HP ---
CHIEF COMPLAINT: Shortness of breath, coughing. HISTORY OF PRESENT ILLNESS: Ms. Sotomayor is a 49-year-old female with past medical history of bronchial asthma, hypertension, polysubstance abuse, came because of shortness of breath going on for 2 days. The patient does not have a nebulizer machine to use nebulizers. She has been using inhalers. Her shortness of breath and wheezing have been getting worse since yesterday. Also has cough productive with whitish sputum, so called the EMS. EMS found the patient in respiratory distress with increased work of breathing, hypoxia, and chest wheezing, so she was placed on CPAP and brought to the hospital. In the ER, the patient was given steroids, neb treatments x5 and continued BiPAP in the ER. Currently, the patient is still wheezing, but no history of fever. No history of nausea or vomiting. No headache. No dizziness. PAST MEDICAL HISTORY: 1. Bronchial asthma. 2. Hypertension. 3. Hyperlipidemia. 4. Bipolar disorder. 5. History of drug abuse. PAST SURGICAL HISTORY: Status post hysterectomy. CURRENT MEDICATIONS: 1. Symbicort inhaler 160/4.5 two puffs b.i.d. 2. Neurontin 300 mg daily. 3. Lisinopril 10 mg daily. ALLERGIES: NKDA. FAMILY HISTORY: Nothing contributory. SOCIAL HISTORY: The patient lives with family. Smokes one pack a day. Uses cocaine and cannabinoids. REVIEW OF SYSTEMS: CARDIOVASCULAR: No chest pain or shortness of breath. RESPIRATORY: Has cough. No fever. GASTROINTESTINAL: No nausea, vomiting, or abdominal pain. CENTRAL NERVOUS SYSTEM: No headache. No dizziness. PHYSICAL EXAMINATION: GENERAL: The patient is alert, awake, oriented x3. VITAL SIGNS: Temperature 98, pulse 99, respiratory rate 25, blood pressure 129/ 80. HEENT: Head is normocephalic and atraumatic. Pupils are equal and reactive. Nasopharynx is pale and dry. NECK: Supple. No JVD. LUNGS: Breath sounds diminished bilaterally. Percussion dull bilaterally. Expiratory wheeze present bilaterally. HEART: S1 and S2 regular. ABDOMEN: Soft. No tenderness. No organomegaly. Bowel sounds present. RECTAL: Deferred. CENTRAL NERVOUS SYSTEM: No focal deficits. LABORATORY DATA: CBC shows WBC 10.9, hemoglobin 14, hematocrit 49, platelets 317. Prothrombin time 12, . Metabolic panel; sodium 140, potassium 4, chloride 110, CO2 of 22, BUN 7, creatinine 0.9, glucose 111. EKG shows sinus tachycardia, no acute ST-T changes seen. Chest x-ray, no evidence of acute cardiopulmonary disease. ASSESSMENT: 1. Acute respiratory failure secondary to acute exacerbation of bronchial asthma. 2. Hypertension. 3. Bipolar disorder. 4. History of polysubstance abuse. PLAN: 1. Vital signs q.4 hours. 2. Activity as tolerated. 3. Allergies, NKDA. 4. Hep-Lock. 5. DuoNeb 1 unit q.4 hours. 6. Solu-Medrol 20 IVP q.6 hours. 7. Mucinex 600 mg b.i.d. 8. Symbicort 160/4.5 two puffs b.i.d. 9. Continue home medications. 10. Oxygen by face mask and keep the O2 sats above 90%. Job ID: [id number] [facility]
[2019-03-10] MEDS: Mometasone/Formoterol 120 PUFF INHALER INH SCH ×2 (06:54→19:08)
[2019-03-10] MEDS ORDERED: FLU VACC QS2019-20(6MOS UP)/PF 60 MCG/0.5 ML SYRINGE IM ONE (09:00)
[2019-03-10] MEDS: Lisinopril 20 MG TAB PO SCH (09:22)
[2019-03-10] MEDS: Gabapentin 300 MG CAP PO SCH ×3 (09:23→20:01)
[2019-03-10] MEDS: guaiFENesin ER 600 MG TAB PO SCH ×2 (09:23→20:02)
[2019-03-10] MEDS: Enoxaparin Sodium 40 MG/0.4 ML SYRINGE SC SCH (09:24)
--- NOTE | 2019-03-10 18:20 | CON ---
DATE OF CONSULTATION: 03/10/2019 SERVICE: Pulmonary medicine. REASON FOR CONSULTATION: COPD exacerbation. HISTORY OF PRESENT ILLNESS: The patient is a 49-year-old female with past medical history significant for COPD. This was diagnosed 2 to 3 years ago. She also has some degree of asthma. In either way, she had a sick contact in her grandson. He was sick with some sort of respiratory illness. A couple of days later, she ended up having increasing cough, shortness of breath, dyspnea on exertion, sputum change to thick and green. She had a hard time clearing it. She came to the emergency department because she could not breathe. She was initially placed on BiPAP. She was subsequently discontinued from the BiPAP immediately on arriving in the IMCU. She is on steroids, nebulized medications, and antibiotics overnight. She has had a profound improvement in symptoms. She is talking in full sentences. She does not require the BiPAP since presentation here. Otherwise, there has been no interval change to her condition. PAST MEDICAL HISTORY: 1. Asthma. 2. Hypertension. 3. Dyslipidemia. 4. History of drug abuse. 5. Bipolar disorder. PAST SURGICAL HISTORY: Hysterectomy. ALLERGIES: NO KNOWN DRUG ALLERGIES. MEDICATIONS: List of her inpatient medications were reviewed. Multiple updates were made. I have modified her nebulized medication, I changed the steroids over to p.o. FAMILY HISTORY: Noncontributory. SOCIAL HISTORY: She continues to smoke one pack on a daily basis. She has a greater than [id number] history of smoking. She uses cocaine and cannabinoids. She denies any significant alcohol abuse. She has no exposure to chemicals, dust, asbestos, or tuberculosis. REVIEW OF SYSTEMS: General, head, ears, eyes, nose, throat, cardiovascular, respiratory, GI, , musculoskeletal, neurologic, and skin is negative except as mentioned in the HPI. PHYSICAL EXAMINATION: VITAL SIGNS: Afebrile; pulse 84; blood pressure 109/64; respirations 23; and saturation 92%, currently on room air. GENERAL: The patient is awake and alert, in no apparent distress. HEENT: Normocephalic and atraumatic. Sclerae are white. Conjunctivae are pink. Oral mucosa is moist without lesions. LUNGS: Excellent air entry. There is no prolonged expiratory phase or wheezing present. HEART: Normal rate, regular. ABDOMEN: Soft, nontender, and nondistended. Bowel sounds are positive. MUSCULOSKELETAL: No cyanosis or clubbing. No pitting in bilateral lower extremities. NEUROLOGIC: Grossly nonfocal. LABORATORY DATA: CBC is unremarkable. Of note, her eosinophil percentage is 5% . Historically, it has actually been quite elevated. It has been as high as 1300. PH of 7.37, pCO2 of 47, pO2 of 74, corresponding to a saturation of 95%. Basic metabolic profile and liver function studies are unremarkable. Lactate 1.1. Blood cultures x2 are unremarkable. IMAGING: Chest x-ray demonstrates hyperexpanded bilateral lung navas. Outside of that, there is no acute cardiopulmonary abnormality present. ASSESSMENT: 1. Asthma with acute exacerbation. 2. History of polysubstance drug abuse. DISCUSSION AND PLAN: We will deescalate her steroids to p.o. medication. This can be discontinued after a total duration of 10 days. Nebulized medications will be continued q.6 hours. The patient is stable for transition out of the IMCU to the floor. On discharge from the hospital, we can add Singulair to augment her Symbicort therapy. If this is unsuccessful at decreasing her dependency on nebulized medications and asthma attacks, she should be considered for Pulmonary referral. Pulmonary will continue to follow while she remains in-house. 70 minutes have been devoted to this patient in various activities. I personally reviewed all imaging studies and laboratory data noted within this document. For fifty percent of this time, I was interacting with the patient at the bedside or coordinating care with the care team. For the remainder of the time I was immediately available to the patient in the hospital unit. Job ID: [id number] MTDD
[2019-03-10] MEDS: Montelukast Sodium 10 mg Tablet PO SCH (20:01)
[2019-03-10] MEDS ORDERED: predniSONE 20 MG TAB PO SCH (21:00)
[2019-03-11] MEDS ORDERED: Acetaminophen 325 MG TAB PO PRN (02:42)
[2019-03-11] MEDS: Mometasone/Formoterol 120 PUFF INHALER INH SCH ×2 (08:09→19:22)
[2019-03-11] MEDS: Lisinopril 20 MG TAB PO SCH (08:36)
[2019-03-11] MEDS: predniSONE 20 MG TAB PO SCH (08:36)
[2019-03-11] MEDS: Enoxaparin Sodium 40 MG/0.4 ML SYRINGE SC SCH (08:37)
[2019-03-11] MEDS: guaiFENesin ER 600 MG TAB PO SCH ×2 (08:37→20:38)
[2019-03-11] MEDS: Gabapentin 300 MG CAP PO SCH ×3 (08:37→20:37)
--- NOTE | 2019-03-11 15:32 | PRG ---
DATE OF SERVICE: 03/11/2019 SERVICE: Pulmonary Medicine. INTERVAL HISTORY: The patient is breathing comfortably. She is sleeping. With gentle stimulation, she wakes up comfortably and has no conversational dyspnea and is perfectly awake and alert. She has no complaints of chest discomfort, nausea, vomiting, fevers, or chills. Otherwise, there has been no interval change to her condition. PHYSICAL EXAMINATION: VITAL SIGNS: Afebrile, pulse 86, blood pressure 138/119, respirations 17, saturation 100%, currently on room air. GENERAL: The patient is awake and alert, in no apparent distress. LUNGS: Wonderful air entry. There is minimal prolonged expiratory phase. Minimal wheezing is present. No rhonchi are appreciated. HEART: Normal rate, regular. ABDOMEN: Soft, nontender, and nondistended. Bowel sounds are positive. MUSCULOSKELETAL: No cyanosis or clubbing. There is no pitting in the bilateral lower extremities. NEUROLOGIC: Grossly nonfocal. LABORATORY DATA: Blood cultures x2 are unremarkable to-date. ASSESSMENT: 1. Asthma with acute exacerbation. 2. Polysubstance drug abuse. DISCUSSION AND PLAN: The patient is stable for transition out of the ICU to the medical unit. If she continues to have frequent exacerbations in her breathing despite being compliant with Symbicort and Singulair in the outpatient setting, Pulmonary consultation should be considered. An IgE level is currently pending. Historically, she has had very elevated eosinophil counts. As such, she would be somebody who would be a good candidate for Dupixent should she fail our current interventions. Pulmonary will continue to follow. Job ID: [id number]
[2019-03-11] MEDS: Montelukast Sodium 10 mg Tablet PO SCH (20:37)
[2019-03-12] MEDS: Mometasone/Formoterol 120 PUFF INHALER INH SCH ×2 (07:22→19:23)
[2019-03-12] MEDS: Enoxaparin Sodium 40 MG/0.4 ML SYRINGE SC SCH (08:31)
[2019-03-12] MEDS: Gabapentin 300 MG CAP PO SCH ×3 (08:32→20:29)
[2019-03-12] MEDS: predniSONE 20 MG TAB PO SCH (08:32)
[2019-03-12] MEDS: Lisinopril 20 MG TAB PO SCH (08:32)
[2019-03-12] MEDS: guaiFENesin ER 600 MG TAB PO SCH ×2 (08:32→20:29)
[2019-03-12] MEDS: Montelukast Sodium 10 mg Tablet PO SCH (20:29)
[2019-03-13] MEDS: Mometasone/Formoterol 120 PUFF INHALER INH SCH (07:45)
[2019-03-13] MEDS: Lisinopril 20 MG TAB PO SCH (09:32)
[2019-03-13] MEDS: predniSONE 20 MG TAB PO SCH (09:33)
[2019-03-13] MEDS: guaiFENesin ER 600 MG TAB PO SCH (09:34)
[2019-03-13] MEDS: Gabapentin 300 MG CAP PO SCH (09:34)
[2019-03-13] MEDS: Enoxaparin Sodium 40 MG/0.4 ML SYRINGE SC SCH (09:35)
[2019-03-13 09:36] VITALS: BP 111/59
[2019-03-13 13:57] VITALS: TEMP 97.7
== END 2019-03-13 13:14 | disposition home or self-care (01) | DRG 189 ==
LOC: ERS 15:54 → IMCU/EMU 19:36
PROVIDERS: ADMIT Internal Medicine; ATTEND Internal Medicine
DX: J96.01 Acute respiratory failure with hypoxia (principal); J45.901 Unspecified asthma with (acute) exacerbation; J44.1 Chronic obstructive pulmonary disease with (acute) exacerbation; I10 Essential (primary) hypertension; F19.10 Other psychoactive substance abuse, uncomplicated; F31.9 Bipolar disorder, unspecified; F17.200 Nicotine dependence, unspecified, uncomplicated; Z90.710 Acquired absence of both cervix and uterus
CPT/HCPCS: 36415; 71045; 80053; 82785; 82805; 83605; 85025; 87040; 93005; 94640; 94644; 94660; 94760; J1650; J2920; J7512; J7620

== ENCOUNTER 2019-03-18 03:27 | Emergency (ER) | payer OTHER ==
[2019-03-18] MEDS ORDERED: Ondansetron PF 4 MG/2 ML Vial ONE (03:50)
[2019-03-18] MEDS ORDERED: Albuterol Sulfate 2.5 mg/0.5 ml Neb ONE (04:44)
[2019-03-18] MEDS ORDERED: Albuterol Sulfate 2.5 mg/3 ml Neb ONE (04:44)
--- NOTE | 2019-03-18 09:28 | CT ---
PRELIMINARY REPORT/DIRECT RADIOLOGY/EMERGENCY AFTER HOURS PROCEDURE EXAM: CT Abdomen and Pelvis with Intravenous Contrast CLINICAL HISTORY: ER 6... Patient reporting four days of vomitng and diarrhea (3-4X per day). No feve rs but abd pain worst in LLQ. Surgical history of section, Surgical history of hysterectomy TECHNIQUE: Axial computed tomography images of the abdomen and pelvis with intravenous contrast. CONTRAST: With; ISO 370, 85 ML COMPARISON: None provided. FINDINGS: LUNG BASES: Peribronchovascular groundglass opacity within the basal left lower lobe. Likely right p osterior lower lobe atelectasis. No pleural effusion. LIVER: Unremarkable. GALLBLADDER AND BILE DUCTS: Unremarkable. No calcified stone. No ductal dilation. PANCREAS: Unremarkable. SPLEEN: Unremarkable. ADRENAL GLANDS: Unremarkable. KIDNEYS, URETERS, AND BLADDER: Unremarkable. No hydronephrosis or nephrolithiasis. No ureteral or santo dder calculi. Unremarkable ureters and bladder. STOMACH AND BOWEL: No obstruction. No wall thickening. No CT evidence of colitis or acute diverticuli tis. Few colonic diverticula without associated inflammation. APPENDIX: No CT evidence for appendicitis. Normal air-filled appendix. PERITONEUM: No free fluid. No free air. LYMPH NODES: No lymphadenopathy. REPRODUCTIVE: Status post hysterectomy. Numerous pelvic phleboliths. Otherwise, unremarkable. VASCULATURE: No aortic aneurysm. Mild atherosclerosis. BONES: No fracture or suspicious osseous abnormality. Spondyloarthropathy of the imaged spine. Bila teral hip osteoarthrosis. ABDOMINAL WALL AND SOFT TISSUES: Mild diastasis recti and small fat-containing umbilical hernia. IMPRESSION: No acute intra-abdominal or pelvic abnormality. Left lower lobe groundglass consolidative opacity, po ssibly sequela of subtle pneumonia. ELECTRONICALLY SIGNED BY: Jamie Underwood MD Mar 18, 2019 4:38:38 AM MIGRATION SPECIALIST FINAL REPORT ABDOMEN AND PELVIC CT SCAN WITH IV CONTRAST: EMERGENT AFTER HOURS EXAM TIME: 4:06 AM. DATE: 03/18/2019. Patchy bilateral lower lobe ground-glass opacity changes probably representing minimal early pneumoni a. This report is in agreement with the preliminary report. POS: [facility]
[2019-03-18] MEDS ORDERED: Iopamidol-370 76% 500 ML 1 ML ONE (11:18)
== END 2019-03-18 05:39 | disposition home or self-care (01) ==
LOC: ERS 03:27
DX: A08.4 Viral intestinal infection, unspecified (principal); I10 Essential (primary) hypertension; J44.9 Chronic obstructive pulmonary disease, unspecified; G51.0 Bell's palsy; F17.210 Nicotine dependence, cigarettes, uncomplicated; Z79.899 Other long term (current) drug therapy; Z86.73 Personal history of transient ischemic attack (TIA), and cerebral infarction without residual deficits
CPT/HCPCS: 74177; 94640; 96361; 96372; 96374; J0500; J2405; J7611; J7620; Q9967

== ENCOUNTER 2020-01-21 05:15 | Inpatient (IN) | payer OTHER ==
[2020-01-21] MEDS ORDERED: Lorazepam 2 MG/ML VIAL ONE (05:17)
[2020-01-21] MEDS ORDERED: Albuterol Sulfate 2.5 mg/3 ml Neb ONE ×3 (05:25→05:41)
[2020-01-21 05:40] LABS: Actual Bicarbonate (HCO3a) 23.5 mEq/L (22-28); Base Excess (BEa) -2.7 mEq/L (-2.0 to +3.0); CO2 Tension 46.1 mmHg (35.0-45.0); Calcium, Ionized (arterial) 1.33 mmol/L (1.12-1.30); Hemoglobin (Hb) 14.5 g/dL (12.0-16.0); O2 Tension (PaO2), arterial 85.4 mmHg (80.0-100.0); Potassium - ABG Lab 3.84 mmol/L (3.70-5.30); pH, Arterial 7.33 (7.35-7.45)
[2020-01-21 05:46] LABS: ALV-art Gradient 142.175 mmHg (0-20); Puncture Site LRA
[2020-01-21 05:58] LABS: #Basophils 0.1 thou/uL (0.0-0.2); #Lymphocytes 3.3 thou/uL (1.20-3.40); #Monocytes 1.2 thou/uL (0.11-0.59); #Neutrophils 7.5 thou/uL (1.40-6.50); %Basophils 0.4 % (0.0-1.0); %Eosinophils 7.9 % (0.0-10.0); %Lymphocytes 25.2 % (21.0-51.0); %Neutrophils 57.5 % (42.0-75.0); Hemoglobin 13.7 g/dL (12.0-16.0); Mean Corpuscular HGB CONC 32.7 g/dL (32.0-36.0); Mean Corpuscular Hemoglobin 30.3 pg (27.0-31.0); Mean Corpuscular Volume 92.7 fL (78.0-98.0); Platelet Count 333 thou/uL (130-400); RBC Distribution Width 13.5 % (11.5-14.5); Red Blood Cell (RBC) Count 4.51 mill/uL (4.20-5.40)
[2020-01-21 06:26] LABS: ALT (SGPT) 12 U/L (8-55); AST (SGOT) 16 U/L (5-34); Albumin 4.1 g/dL (3.5-5.0); Alkaline Phosphatase 99 U/L (40-110); Anion Gap 12 mmol/L (10-20); BUN (Urea Nitrogen) 10 mg/dL (9.8-20.1); Bilirubin, Total 0.4 mg/dL (0.2-1.2); Calc. Creatinine Clearance 0 mL/min (70-130); Carbon Dioxide 22 mmol/L (22-29); Chloride 109 mmol/L (98-107); Estimated GFR-MDRD 68; Globulin 3.5 g/dL (2.4-3.5); Glucose 116 mg/dL (70-105); Potassium 3.8 mmol/L (3.5-5.1); Protein, Total 7.6 g/dL (6.0-8.3); Sodium 139 mmol/L (136-145)
--- NOTE | 2020-01-21 07:34 | RAD ---
Exam: Chest one view HISTORY:Difficulty breathing. Evaluate for COVID 19 pneumonia. Comparison: 11/07/2019 FINDINGS: Cardiac silhouette: Normal Aorta: Unremarkable Pulmonary vessels: Normal Costophrenic angles: Clear LUNGS: No masses or consolidation. Pneumothorax: None Osseous abnormalities: None IMPRESSION: No acute cardiopulmonary process.
[2020-01-21 07:35] LABS: SARS-CoV-2 NAA Rapid Test Not Detected (NotDetected)
[2020-01-21] MEDS ORDERED: Acetaminophen 325 MG TAB PO PRN (08:23)
[2020-01-21] MEDS ORDERED: Nicotine 14 MG PATCH TD PRN (08:23)
[2020-01-21] MEDS ORDERED: Albuterol Sulfate 2.5 mg/3 ml Neb NEB PRN (08:23)
[2020-01-21 08:50] VITALS: BMI 29.4
--- NOTE | 2020-01-21 09:05 | HP ---
CHIEF COMPLAINT: Difficulty breathing. HISTORY OF PRESENT ILLNESS: This is a 50-year-old female with history of pneumonia, hospitalized here in November 2019; hypertension; polysubstance abuse; chronic low back pain; COPD; Doe palsy; who presented to the emergency room today with a complaint of difficulty breathing. Please note that the patient has received 2 mg of IV Ativan, currently awakens to voice and promptly falls back asleep. All history is obtained from the chart. Per the ER note, it states to increasing trouble breathing over the past 3 days, she was given DuoNeb, Solu-Medrol, and magnesium at the fire department and started on CPAP. The chart notes that the patient has been intubated 4 times in the past. In the emergency department here, the patient received 2 mg IV Ativan and hospitalist called for admission. PAST MEDICAL HISTORY: By chart review; 1. Hypertension. 2. COPD. 3. Polysubstance abuse. 4. Chronic low back pain. 5. TIA. 6. Doe palsy. PAST SURGICAL HISTORY: By chart review, and hysterectomy. SOCIAL HISTORY: By chart review, the patient uses tobacco, cocaine, marijuana. There is a report that the patient feels unsafe at home. The surrogate decision maker is unobtainable. FAMILY HISTORY: Unobtainable. REVIEW OF SYSTEMS: Unobtainable. PHYSICAL EXAMINATION: VITAL SIGNS: Blood pressure 108/66, pulse 108, respirations 26, temperature 98.8, saturations 94% on BiPAP. GENERAL: The patient is asleep, she will awaken to light touch or to voice and easily falls back asleep. She is not in apparent distress. HEENT: No scleral icterus. Pupils are equal and round. LUNGS: Good air movement on BiPAP. No audible wheezing, rhonchi, or rales. HEART: Normal S1 and S2. No significant murmurs. ABDOMEN: Soft. Present bowel sounds. EXTREMITIES: No clubbing, cyanosis, or edema. NEUROLOGIC: No focal deficits, however, unable to adequately assess. PSYCH: Unable to adequately assess. SKIN: No visible rashes. VASCULAR: 2+ dorsalis pedis pulses. LYMPHATICS: No palpable cervical or supraclavicular lymphadenopathy. LABORATORY DATA: Reviewed. CBC; 13, 13.7, 41.8, 333. Blood gas; 7.33, pCO2 of 46.1, PO2 of 85.4. This is on BiPAP. Renal panel; 139, 3.8, 109, 22, 10, 1.04, 116. LFTs negative. Troponin negative. COVID negative. Chest x-ray is personally reviewed. No acute process, the patient does have some flattening of the diaphragms. EKG personally reviewed, normal axis, normal intervals, sinus tach to 115, no ST changes. IMPRESSION: 1. Chronic obstructive pulmonary disease with exacerbation - Unable to obtain history to know if there are other processes going on. 2. Based on chart review, the patient also has these additional problems, history of transient ischemic attack, hypertension, Doe palsy, hospitalization 2 months ago for pneumonia, polysubstance abuse, chronic low back pain. 4. Report of feeling unsafe at home in the emergency room. 5. Tobacco abuse. PLAN: 1. Admission to the hospital. 2. Continue BiPAP until the patient is fully awake. 3. Continue steroids, nebulizer therapy, and monitor for response. 4. We will hold antibiotics for now, given a clear chest x-ray. 5. Hold any home medications as I am uncertain of what the patient is taking and how often she is taking them. We will trend her blood pressures. 6. Monitor renal function and white blood cell count. 7. Case Management consult for the report of feeling unsafe. 8. N.p.o. for now while on BiPAP. We will start IV fluids until she is able to take p.o. reliably. 9. Deep venous thrombosis prophylaxis with Lovenox. 10. Gastrointestinal prophylaxis not indicated. 11. Code status is presumed full, surrogate decision maker unknown, given the reasons above. 12. Reviewed the plan of care with the nurse at the bedside. No questions or further needs at the end of evaluation. 13. The patient is at high risk, given age, comorbidities, and current presentation. Job ID: [id number] [facility]
[2020-01-21 09:48] LABS: Troponin I Less than 0.010 ng/mL (< 0.028)
[2020-01-21] MEDS ORDERED: FLU VACC QS2020-21(6MOS UP)/PF 60 MCG/0.5 ML SYRINGE IM ONE (10:15)
[2020-01-21] MEDS: NS 0.9% w/ 20 MEQ KCL 1,000 ML/1,000 ML BAG IV SCH ×2 (10:26→16:17)
[2020-01-21] MEDS: Enoxaparin Sodium 40 MG/0.4 ML SYRINGE SC SCH (10:26)
[2020-01-21] MEDS: methylPREDNISolone Sod Succ 40 MG VIAL IVP SCH ×3 (10:27→21:12)
[2020-01-21 12:16] LABS: Troponin I Less than 0.010 ng/mL (< 0.028)
[2020-01-21] MEDS: Arformoterol 15 MCG/2 ML NEB NEB SCH (19:40)
[2020-01-21] MEDS ORDERED: traMADol HCl 50 MG TAB PO PRN (21:47)
[2020-01-22 04:02] LABS: Band 13 % (5-11); Hemoglobin 12.7 g/dL (12.0-16.0); Lymphocytes 7 % (21-51); MDiff Complete? YES; Mean Corpuscular HGB CONC 32.9 g/dL (32.0-36.0); Mean Corpuscular Hemoglobin 30.6 pg (27.0-31.0); Mean Platelet Volume 7.7 fL (7.4-10.4); Monocytes 4 % (0-10); Neutrophil 76 % (42-75); Platelet Count 305 thou/uL (130-400); Platelet Morphology Comment Appears Adequate; RBC Distribution Width 13.6 % (11.5-14.5); Red Blood Cell (RBC) Count 4.13 mill/uL (4.20-5.40); White Blood Cell (WBC) Count 20.8 thou/uL (4.8-10.8)
[2020-01-22 04:24] LABS: Anion Gap 11 mmol/L (10-20); BUN (Urea Nitrogen) 13 mg/dL (9.8-20.1); Calc. Creatinine Clearance 96 mL/min (70-130); Carbon Dioxide 20 mmol/L (22-29); Chloride 109 mmol/L (98-107); Estimated GFR-MDRD 79; Glucose 204 mg/dL (70-105); Potassium 4.2 mmol/L (3.5-5.1); Sodium 136 mmol/L (136-145)
[2020-01-22] MEDS: methylPREDNISolone Sod Succ 40 MG VIAL IVP SCH ×4 (04:29→20:26)
[2020-01-22] MEDS: Arformoterol 15 MCG/2 ML NEB NEB SCH ×2 (07:27→20:23)
[2020-01-22] MEDS: NS 0.9% w/ 20 MEQ KCL 1,000 ML/1,000 ML BAG IV SCH ×3 (10:48→21:09)
[2020-01-22] MEDS: Montelukast Sodium 10 mg Tablet PO SCH (10:48)
[2020-01-22] MEDS: Enoxaparin Sodium 40 MG/0.4 ML SYRINGE SC SCH (10:48)
[2020-01-22] MEDS: Gabapentin 300 MG CAP PO SCH ×2 (10:48→20:24)
--- NOTE | 2020-01-22 14:03 | PDOC.HOSPP ---
- Subjective Encounter Date: 01/22/20 Encounter Time: 13:00 Subjective: Patient seen for follow-up regarding COPD exacerbation. She is awake and alert, reports shortness of breath with exertion. - Objective Vital Signs & Weight: Vital Signs (12 hours) Temp Pulse Resp Pulse Ox 01/22/20 13:00 98.0 F 01/22/20 08:00 95 01/22/20 07:56 98.3 F 01/22/20 07:26 84 19 96 01/22/20 03:47 97.4 F L Weight Admit Weight 182 lb 8 oz Weight 182 lb 8 oz Most Recent Monitor Data Heart Rate from ECG 88 NIBP 140/84 NIBP BP-Mean 102 Respiration from ECG 22 SpO2 93 I&O: 01/21/20 01/22/20 01/23/20 06:59 06:59 06:59 Intake Total 3630 Output Total 2200 Balance 1430 Result Diagrams: 01/22/20 03:41 01/22/20 03:41 Additional Labs: I reviewed patient's labs and MAR EKG Reviewed by me: Yes (Normal sinus rhythm on telemetry) Hospitalist ROS - Review of Systems Constitutional: denies: fever, chills, sweats, weakness, malaise Respiratory: reports: cough, SOB with excertion, wheezing. denies: dry, shortness of breath, hemoptysis, pleuritic pain, sputum Cardiovascular: denies: chest pain, palpitations, orthopnea, paroxysmal noc. dyspnea, edema, light headedness Gastrointestinal: denies: nausea, vomiting, abdominal pain, diarrhea, constipation, melena, hematochezia Genitourinary: denies: dysuria, frequency, incontinence, hematuria, retention Skin: denies: rash, lesions, mery, bruising - Medication Medications: Active Medications Generic Name Dose Route Start Last Admin Trade Name Freq PRN Reason Stop Dose Admin Albuterol/Ipratropium 3 ml 01/21/20 13:00 01/22/20 07:26 Ipratropium/Albuterol Sulfate 3 Ml Neb NEB 3 ml O1TC-GF SCAR Administration Arformoterol Tartrate 15 mcg 01/21/20 18:30 01/22/20 07:27 Arformoterol 15 Mcg/2 Ml Neb NEB 15 mcg BID-RT SCAR Administration Enoxaparin Sodium 40 mg 01/21/20 09:00 01/22/20 10:48 Enoxaparin Sodium 40 Mg/0.4 Ml Syringe SC 40 mg 0900 SCAR Administration Gabapentin 600 mg 01/22/20 09:00 01/22/20 10:48 Gabapentin 300 Mg Cap PO 600 mg BID SCAR Administration Potassium Chloride/Sodium Chloride 1,000 ml in 1,000 mls @ 100 mls/hr 01/21/20 08:45 01/22/20 10:48 Ns 0.9% W/ 20 Meq Kcl IV 1,000 mls .Q10H SCAR Administration Methylprednisolone Sodium Succinate 40 mg 01/21/20 09:00 01/22/20 10:49 Methylprednisolone Sod Succ 40 Mg Vial IVP 40 mg Q6H SCAR Administration Montelukast Sodium 10 mg 01/22/20 09:00 01/22/20 10:48 Montelukast Sodium 10 Mg Tablet PO 10 mg DAILY SCAR Administration Nicotine 14 mg 01/21/20 08:23 01/21/20 10:26 Nicotine 14 Mg Patch TD 14 mg Q24HR PRN Administration Smoking Cessation Sodium Chloride 10 ml 01/21/20 09:00 01/22/20 10:49 Flush - Normal Saline 10 Ml Syringe IVF 10 ml Q12HR SCAR Administration Sodium Chloride 10 ml 01/21/20 09:00 01/22/20 04:29 Flush - Normal Saline 10 Ml Syringe IVF 10 ml PRN PRN Administration Saline Flush - Exam General Appearance: awake alert Eye: anicteric sclera ENT: moist mucosa Neck: supple, symmetric, no thyromegaly, no lymphadenopathy Heart: RRR, no gallops, no rubs, normal peripheral pulses Respiratory: no rales, no ronchi, normal chest expansion, wheezes Gastrointestinal: soft, non-tender, non-distended, normal bowel sounds Extremities: no cyanosis Skin: no rashes Psychiatric: normal affect, normal behavior, oriented to person, oriented to place Hosp A/P (1) COPD with acute exacerbation Code(s): J44.1 - CHRONIC OBSTRUCTIVE PULMONARY DISEASE W (ACUTE) EXACERBATION Status: Acute (2) Acute hypercapnic respiratory failure Code(s): J96.02 - ACUTE RESPIRATORY FAILURE WITH HYPERCAPNIA Status: Acute (3) Essential hypertension Code(s): I10 - ESSENTIAL (PRIMARY) HYPERTENSION Status: Chronic (4) Polysubstance abuse Code(s): F19.10 - OTHER PSYCHOACTIVE SUBSTANCE ABUSE, UNCOMPLICATED Status: Chronic - Plan Continue oxygen, steroids and bronchodilators. Hypertension is controlled, resume lisinopril. Patient counseled regarding polysubstance abuse. Transfer to medical floor.
[2020-01-22 21:13] LABS: Amphetamine Not Detected (NotDetected); Barbiturates Screen Not Detected (NotDetected); Benzodiazepine Screen Not Detected (NotDetected); Cocaine Metabolite Screen Detected (NotDetected); Medtox Control Line Valid? VALID (VALID); Medtox Reader # READER 4; Methadone Not Detected (NotDetected); Methamphetamine Not Detected (NotDetected); Opiate Screen Not Detected (NotDetected); Oxycodone Screen Not Detected (NotDetected); Phencyclidine (PCP) Detected (NotDetected); THC/Cannabinoid Screen Not Detected (NotDetected); Tricyclic Screen Not Detected (NotDetected)
[2020-01-23] MEDS ORDERED: Miconazole 2% Vaginal Cream 45 GM TUBE VAG SCH ×2 (01:00→21:00)
--- NOTE | 2020-01-23 01:32 | CON ---
DATE OF CONSULTATION: 01/22/2020 HISTORY OF PRESENT ILLNESS: Ms. Sotomayor is a very pleasant 50-year-old female, well known to me. She says she sat on the porch in some cooler weather recently after a and started wheezing. She subsequently has been admitted. She says she feels 100% better than she felt in the emergency room. She said she would barely talk in the emergency room when she arrived. She has a long history of marginal medical compliance with regard to her asthma. PAST MEDICAL HISTORY: 1. Remarkable for hypertension. 2. History of drug abuse. 3. History of Doe's palsy. 4. History of chronic pain. 5. History of TIA in the past. 6. History of . 7. Status post hysterectomy. 8. She tells me that she was good for a long time, but had been as good lately, she is using drugs again. FAMILY HISTORY: Negative for lung disease in early age. REVIEW OF SYSTEMS: Otherwise 10 point negative. PHYSICAL EXAMINATION: GENERAL: She is pleasant, no distress, talking in complete sentences. She is afebrile, heart rate 78, respiratory rate is 18, oximetry is 99% on room air, blood pressure 120/67. HEAD AND NECK: Unremarkable. LUNGS: Clear. HEART: Regular rhythm. ABDOMEN: Soft and nontender. EXTREMITIES: Without clubbing, cyanosis, or edema. LABORATORY STUDIES: Shows no infiltrates, white count 20.8, hemoglobin 12.7. White count was 13 yesterday. Electrolytes were essentially unremarkable other than mildly elevated chloride with a corresponding decrease in bicarb. Anion gap is only 7. Glucose this morning was elevated to 204. IMPRESSION: 1. Asthma exacerbation. 2. Probable ongoing street drug use. 3. We will order urine drug screen more for confirmation and something that will change our management. 4. She could probably be discharged home in the morning. This is a 50 min consult with greater than 50% of the time spent on the unit with coordination of care. Job ID: [id number] [facility]
[2020-01-23] MEDS: methylPREDNISolone Sod Succ 40 MG VIAL IVP SCH ×2 (02:52→09:31)
[2020-01-23 07:54] VITALS: BP 148/70; TEMP 96.5
[2020-01-23] MEDS: Arformoterol 15 MCG/2 ML NEB NEB SCH (08:09)
[2020-01-23] MEDS: Enoxaparin Sodium 40 MG/0.4 ML SYRINGE SC SCH (09:30)
[2020-01-23] MEDS: Gabapentin 300 MG CAP PO SCH (09:33)
[2020-01-23] MEDS: Montelukast Sodium 10 mg Tablet PO SCH (09:33)
--- NOTE | 2020-01-23 10:23 | DIS ---
DATE OF ADMISSION: 01/21/2020 DATE OF DISCHARGE: 01/23/2020 PRIMARY CARE PROVIDER: Unknown. DISCHARGE DIAGNOSES: 1. Acute hypercapnic respiratory failure. 2. Chronic obstructive pulmonary disease exacerbation. CONDITION OF THE PATIENT ON THE DAY OF DISCHARGE: Stable. I assessed Ms. Sotomayor on the day of discharge. She denies any chest pain or shortness of breath. Vital signs are stable. She is saturating well on room air. S1 and S2 are heard, regular. Lungs are clear to auscultation bilaterally. HOSPITAL COURSE: Ms. Sotomayor is a pleasant 50-year-old lady, who was admitted to [facility] on January 21, 2020 for acute hypercapnic respiratory failure secondary to COPD exacerbation. She was treated with BiPAP therapy. She also received oxygen, steroids, and bronchodilators. She improved clinically. She was seen by Pulmonology, Dr. Treviño. COVID-19 test was negative. Drug screen showed phencyclidine and cocaine metabolites. The patient has been advised to stop recreational drug use. She is being discharged home on oral steroid taper, no other change was made to her pre-admission home medications. POST-ACUTE CARE FOLLOWUP: With primary care provider in 3 days. DIET: Heart healthy. ACTIVITY: As tolerated. DISCHARGE DESTINATION: Home. TIME SPENT: Total amount of time spent coordinating this discharge: 32 minutes. Job ID: [id number]
== END 2020-01-23 11:55 | disposition home or self-care (01) | DRG 189 ==
LOC: ERS 05:15 → IMCU/EMU 08:29 → ONC 01-22 13:53
PROVIDERS: ADMIT Internal Medicine; ATTEND Internal Medicine
PROC: 5A09357 Assistance with Respiratory Ventilation, Less than 24 Consecutive Hours, Continuous Positive Airway Pressure (ICD-10-PCS; principal; 2020-01-21)
PROC: 3E02340 Introduction of Influenza Vaccine into Muscle, Percutaneous Approach (ICD-10-PCS; 2020-01-21)
DX: J96.02 Acute respiratory failure with hypercapnia (principal); J44.1 Chronic obstructive pulmonary disease with (acute) exacerbation; J45.901 Unspecified asthma with (acute) exacerbation; Z20.828 Contact with and (suspected) exposure to other viral communicable diseases; I10 Essential (primary) hypertension; G51.0 Bell's palsy; F14.10 Cocaine abuse, uncomplicated; F12.10 Cannabis abuse, uncomplicated; F17.210 Nicotine dependence, cigarettes, uncomplicated; G89.29 Other chronic pain; M54.5 Low back pain; Z23 Encounter for immunization; Z86.73 Personal history of transient ischemic attack (TIA), and cerebral infarction without residual deficits; Z79.899 Other long term (current) drug therapy
CPT/HCPCS: 36415; 71045; 80048; 80053; 80306; 82805; 84484; 85025; 90471; 90662; 93005; 94640; 94660; 96374; G0008; J1650; J2060; J2920; J3480; J7611; J7620; U0002

== ENCOUNTER 2020-04-11 07:48 | Emergency (ER) | payer OTHER ==
[2020-04-11 08:12] LABS: #Eosinphils 0.7 thou/uL (0.0-0.7); #Lymphocytes 3.1 thou/uL (1.20-3.40); #Monocytes 0.7 thou/uL (0.11-0.59); #Neutrophils 5.5 thou/uL (1.40-6.50); %Basophils 0.2 % (0.0-1.0); %Eosinophils 6.5 % (0.0-10.0); %Lymphocytes 30.8 % (21.0-51.0); %Monocytes 7.2 % (0.0-10.0); %Neutrophils 55.2 % (42.0-75.0); Hemoglobin 14.2 g/dL (12.0-16.0); Mean Corpuscular HGB CONC 32.4 g/dL (32.0-36.0); Mean Corpuscular Hemoglobin 30.1 pg (27.0-31.0); Mean Corpuscular Volume 92.9 fL (78.0-98.0); Mean Platelet Volume 7.2 fL (7.4-10.4); Platelet Count 335 thou/uL (130-400); RBC Distribution Width 13.1 % (11.5-14.5); Red Blood Cell (RBC) Count 4.72 mill/uL (4.20-5.40)
[2020-04-11 08:36] LABS: Acetaminophen Less than 6.0 mcg/mL (10.0-30.0); Alcohol Less than 10 mg/dL (Less than 10); CK (CPK) 57 U/L (29-168); Salicylate Less than 8.0 mg/dL (15.0-30.0)
[2020-04-11 08:37] LABS: ALT (SGPT) 11 U/L (8-55); AST (SGOT) 13 U/L (5-34); Albumin 3.8 g/dL (3.5-5.0); Alkaline Phosphatase 109 U/L (40-110); Anion Gap 12 mmol/L (10-20); BUN (Urea Nitrogen) 6 mg/dL (9.8-20.1); Bilirubin, Total 0.2 mg/dL (0.2-1.2); Calc. Creatinine Clearance 0 mL/min (70-130); Calcium 10.1 mg/dL (7.8-10.44); Carbon Dioxide 25 mmol/L (22-29); Chloride 109 mmol/L (98-107); Globulin 3.4 g/dL (2.4-3.5); Glucose 132 mg/dL (70-105); Potassium 3.9 mmol/L (3.5-5.1); Protein, Total 7.2 g/dL (6.0-8.3); Sodium 142 mmol/L (136-145)
[2020-04-11 10:26] LABS: Bacteria/HPF None Seen HPF (None Seen); Bilirubin Negative (Negative); Blood, Urine Trace (Negative); Clarity Clear (Clear); Glucose, Urine (Dipstick) Normal (Negative); Ketone, Urine Negative (Negative); Leukocyte Negative Leu/uL (Negative); Nitrite Negative (Negative); Protein, Urine (Dipstick) Negative (Neg-Trace); RBC/HPF 0-3 HPF (0-3); Specific Gravity, Urine 1.017 (1.002-1.036); Squamous Epithelial 0-3 HPF (0-3); Urobilinogen Normal mg/dL (Less than 2); WBC/HPF 0-3 HPF (0-3)
[2020-04-11 10:34] LABS: Amphetamine Not Detected (NotDetected); Barbiturates Screen Not Detected (NotDetected); Benzodiazepine Screen Not Detected (NotDetected); Cocaine Metabolite Screen Detected (NotDetected); Medtox Control Line Valid? VALID (VALID); Medtox Reader # READER 1; Methadone Not Detected (NotDetected); Methamphetamine Not Detected (NotDetected); Opiate Screen Not Detected (NotDetected); Oxycodone Screen Not Detected (NotDetected); Phencyclidine (PCP) Detected (NotDetected); THC/Cannabinoid Screen Detected (NotDetected); Tricyclic Screen Not Detected (NotDetected)
[2020-04-11] MEDS ORDERED: Albuterol Sulfate 2.5 mg/3 ml Neb NEB PRN (14:38)
[2020-04-11] MEDS ORDERED: Lisinopril 20 MG TAB PO SCH (14:45)
[2020-04-11] MEDS ORDERED: Mometasone 200 MCG/Formoterol 5 MCG 120 PUFF INHALER INH SCH (14:45)
[2020-04-11] MEDS ORDERED: Albuterol Sulfate 2.5 mg/3 ml Neb NEB SCH (14:45)
[2020-04-11] MEDS ORDERED: Montelukast Sodium 10 mg Tablet PO SCH (14:45)
[2020-04-11] MEDS ORDERED: Albuterol 200 PUFF (6.7GM INHALER) ONE (14:51)
[2020-04-11] MEDS ORDERED: Budesonide 0.5 MG/2 ML NEB ONE (14:52)
[2020-04-12] MEDS ORDERED: Mometasone 200 MCG/Formoterol 5 MCG 120 PUFF INHALER INH SCH (07:00)
[2020-04-12] MEDS ORDERED: Lisinopril 20 MG TAB PO SCH (09:00)
[2020-04-12] MEDS ORDERED: Montelukast Sodium 10 mg Tablet PO SCH (21:00)
== END 2020-04-11 20:54 ==
LOC: ERS 07:48
DX: R45.851 Suicidal ideations (principal); F14.10 Cocaine abuse, uncomplicated; F12.10 Cannabis abuse, uncomplicated; F16.10 Hallucinogen abuse, uncomplicated; I10 Essential (primary) hypertension; J44.9 Chronic obstructive pulmonary disease, unspecified; G51.0 Bell's palsy; F17.210 Nicotine dependence, cigarettes, uncomplicated; Z86.73 Personal history of transient ischemic attack (TIA), and cerebral infarction without residual deficits; Z79.51 Long term (current) use of inhaled steroids; Z79.899 Other long term (current) drug therapy; X83.8XXA Intentional self-harm by other specified means, initial encounter
CPT/HCPCS: 36415; 80053; 80306; 80307; 81003; 81015; 82550; 84443; 85025; 93005; J7620; J7626

== ENCOUNTER 2022-10-12 13:14 | Outpatient (CLI) | payer OTHER | END 2022-10-12 13:15 | disposition home or self-care (01) | LOC: BICMAMMO 13:14 | PROVIDERS: ATTEND Nurse Practitioner Family | DX: Z12.31 Encounter for screening mammogram for malignant neoplasm of breast (principal); Z80.3 Family history of malignant neoplasm of breast | CPT/HCPCS: 77067 ==